=== PATIENT | female | born 1965 | race Caucasian/White ===

== ENCOUNTER 2017-05-04 12:33 | Inpatient (IN) | payer BC ==
[~2017-05-04] VITALS: Ht 162.6 cm; Wt 68.0 kg
--- OUTSIDE RECORDS SUMMARY | 2017-05-04 12:35 | XMS REPORT | Clinical Summary ---
Author Author [facility] Organization [facility] Address Unknown Phone Unavailable Care Team Providers Care Drawer In Stitch [employer] Machine Name Role Phone Deshaun Clark MD PCP Allergies No Known Allergies Current Medications Prescription Sig. Disp. Refills Start End Date Status Date atorvastatin (LIPITOR) 80 TK 1 T PO QHS 3 12/12/19 Active MG tablet 17 DEXCOM G5 [employer]ICE [employer]IR [employer]BLER misc See Admin Instructions. 0 10/15/19 Active 17 ezetimibe (ZETIA) 10 mg TK 1 T PO D 1 11/09/19 Active tablet 17 TOUJEO SOLOSTAR 300 INJECT 55 UNITS UNDER THE 3 12/08/19 Active unit/mL (1.5 mL) insulin SKIN ONCE D 17 pen metoprolol succinate XL TK 1 T PO BID 3 12/12/19 Active (TOPROL-XL) 50 mg 24 hr 17 tablet lisinopril TK 1 T PO QD 3 12/03/19 Active (PRINIVIL,ZESTRIL) 10 mg 17 tablet insulin ASPART (NovoLOG) Inject under the skin 3 Active 100 unit/mL injection (three) times a day before meals. Active Problems Problem Noted Date Dupuytren's contracture of right hand 12/23/2016 Dupuytren's contracture of left hand 12/23/2016 Encounters Date Type Specialty Care Team Description 12/23/2016 Office Visit Orthopedic Surgery Isaac Pryor MD Bilateral hand pain (Primary Dx);Dupuytren's contracture of right hand;Dupuytren's contracture of left hand after 05/03/2016 Social History Tobacco Use Types Packs/Day Years Used Date Never Assessed Sex Assigned at Date Recorded Not on file Last Filed Vital Signs Not on file Plan of Treatment Health Maintenance Due Date Last Done Comments PAP SMEAR 1985 COLONOSCOPY 2014 MAMMOGRAM 2014 INFLUENZA VACCINE 10/28/2016 Results * XR Hands 3 Vw Bilateral (12/23/2016 11:07 AM) Specimen Performing Laboratory [facility] [id number] [facility] [place] [address] Narrative X-rays of theright hand are done.PA, lateral, oblique xrays demonstrate no evidence of a fracture, dislocation. There is no DIP joint arthritis noted. There is mild first carpometacarpal joint arthritis. X-rays of theleft hand are done.PA, lateral, oblique xrays demonstrate no evidence of a fracture, dislocation. There is no DIP joint arthritis noted. There is mild first carpometacarpal joint arthritis. after 05/03/2016 Insurance Payer Benefit Subscriber ID Type Phone Address Plan / Group BCBS BCBS [id number] PPO CHOICE PPO/[place] [address]
--- OUTSIDE RECORDS SUMMARY | 2017-05-04 12:36 | XMS REPORT ---
Author Author [facility] Address Unknown Phone Unavailable Care Team Providers Care Production Team Member Name Role Phone MARIE GROSSENRIQUE Unavailable Unavailable DYLAN SOSA Unavailable Unavailable Problems This patient has no known problems. Allergies, Adverse Reactions, Alerts This patient has no known allergies or adverse reactions. Medications This patient has no known medications. Results Test Description Test Time Test Comments Text Results Atomic Results Result Comments RAD, SHOULDER, COMPLETE (MIN 2 VIEWS), LEFT 2016-12-18 15:46:00 Reason for Exam:->[id number] FINAL REPORT Right shoulder, three views ; left shoulder, three views HISTORY: Shoulder pain COMPARISON: None. DISCUSSION : Right shoulder: No acute displaced fracture or dislocation. Visualized soft tissues grossly unremarkable. Left shoulder: No acute displaced fracture or dislocation. Visualized soft tissues grossly unremarkable. IMPRESSION: Unremarkable bilateral shoulder radiographs. No acute osseous abnormality Signed : John Meade Verified Date/Time: 12/18/2016 15:46:34 Reading Location: [address] Radiology Reading Room , SHOULDER, COMPLETE (MIN 2 VIEWS), RIGHT 2016-12-18 15:46:00 Reason for Exam:->[id number] FINAL REPORT Right shoulder, three views ; left shoulder, three views HISTORY: Shoulder pain COMPARISON: None. DISCUSSION : Right shoulder: No acute displaced fracture or dislocation. Visualized soft tissues grossly unremarkable. Left shoulder: No acute displaced fracture or dislocation. Visualized soft tissues grossly unremarkable. IMPRESSION: Unremarkable bilateral shoulder radiographs. No acute osseous abnormality Signed : John Meade Verified Date/Time: 12/18/2016 15:46:34 Reading Location: [address] Radiology Reading Room -GLUCOSE METER 2016-09-18 14:14:00 POC-GLUCOSE METER (BEAKER) (test kbhu=5523) 94 mg/dL 70-[address] [facility] [address] [facility] [address] BLOOD [id number] 13:59:00* Test Item Value Reference Range Comments CULTURE (BEAKER) (test lsgx=6207) No growth in 5 days BLOOD [id number] 13:59:00* Test Item Value Reference Range Comments CULTURE (BEAKER) (test warr=9112) No growth in 5 days BLOOD [id number] 08:18:00* Test Item Value Reference Range Comments CULTURE (BEAKER) (test ffup=1387) ESCHERICHIA COLI From Anaerobic Bottle Only Escherichia coli Amikacin (test code=1) Ampicillin + Sulbactam (test code=6) Aztreonam (test code=32) Cefepime (test code=51) Cefoxitin (test code=68) Ceftazidime (test code=27) Ceftriaxone (test code=52) Ertapenem (test code=38) Gentamicin (test code=18) Levofloxacin (test code=22) Meropenem (test code=34) Piperacillin + Tazobactam (test code=29) Tetracycline (test code=2) Tobramycin (test code=25) Trimethoprim + Sulfamethoxazole (test code=47) GRAM STAIN RESULT (BEAKER) (test heaj=8986) From anaerobic bottle only: gram negative rods BLOOD [id number] 13:28:00* Test Item Value Reference Range Comments CULTURE (BEAKER) (test spye=4304) No growth in 5 days DOUBLE-STRANDED DNA (DSDNA) [id number] 11:41:00* Test Item Value Reference Range Comments ANTI-DNA DS (BEAKER) (test wzns=5649) Negative URINE [id number] 10:25:00* Test Item Value Reference Range Comments CULTURE (BEAKER) (test gbxq=7299) No growth POCT-GLUCOSE [id number] 08:44:00* Test Item Value Reference Range Comments POC-GLUCOSE METER (BEAKER) (test knfl=9264) 134 mg/dL 70-[address] [facility] [address] [facility] [address] CBC W/PLT COUNT & AUTO [id number] 07:07:00* Test Item Value Reference Range Comments WHITE BLOOD CELL COUNT (BEAKER) (test zwax=888) 7.8 K/ L 4.0-10.0 RED BLOOD CELL COUNT (BEAKER) (test hvwa=654) 3.73 M/ L 4.00-5.00 HEMOGLOBIN (BEAKER) (test xekb=200) 10.7 GM/DL 12.0-15.0 HEMATOCRIT (BEAKER) (test bzky=316) 33.0 % 36.0-45.0 MEAN CORPUSCULAR VOLUME (BEAKER) (test qkoj=266) 88.6 fL 82.0-99.0 MEAN CORPUSCULAR HEMOGLOBIN (BEAKER) (test yfdb=393) 28.7 pg 27.0-33.0 MEAN CORPUSCULAR HEMOGLOBIN CONC (BEAKER) (test gtda=771) 32.4 GM/DL 32.0- 36.0 RED CELL DISTRIBUTION WIDTH (BEAKER) (test pyzu=754) 17.9 % 10.3-14.2 PLATELET COUNT (BEAKER) (test ocwb=958) 279 K/CU MM 150-430 MEAN PLATELET VOLUME (BEAKER) (test nbrr=305) 7.2 fL 6.5-10.5 NUCLEATED RED BLOOD CELLS (BEAKER) (test lysn=378) 0 /100 WBC 0-0 NEUTROPHILS RELATIVE PERCENT (BEAKER) (test upej=189) 73 % LYMPHOCYTES RELATIVE PERCENT (BEAKER) (test mgyc=608) 13 % MONOCYTES RELATIVE PERCENT (BEAKER) (test rqro=532) 13 % EOSINOPHILS RELATIVE PERCENT (BEAKER) (test givw=791) 1 % BASOPHILS RELATIVE PERCENT (BEAKER) (test mkwa=450) 0 % NEUTROPHILS ABSOLUTE COUNT (BEAKER) (test piqr=293) 5.73 K/ L 1.80-8.00 LYMPHOCYTES ABSOLUTE COUNT (BEAKER) (test gcrs=126) 0.99 K/ L 1.48-4.50 MONOCYTES ABSOLUTE COUNT (BEAKER) (test evnr=813) 1.01 K/ L 0.00-1.30 EOSINOPHILS ABSOLUTE COUNT (BEAKER) (test ymys=282) 0.11 K/ L 0.00-0.50 BASOPHILS ABSOLUTE COUNT (BEAKER) (test yvsb=705) 0.01 K/ L 0.00-0.20 0.001.100.000.000.000.000.000.000.000.000.000.000.000.00BASI METABOLIC [id number] 05:18:00* Test Item Value Reference Range Comments SODIUM (BEAKER) (test ohnf=157) 136 meq/L 136-145 POTASSIUM (BEAKER) (test tmzt=867) 4.1 meq/L 3.5-5.1 CHLORIDE (BEAKER) (test evdd=527) 106 meq/L 98-107 CO2 (BEAKER) (test xvnk=897) 19 meq/L 22-29 BLOOD UREA NITROGEN (BEAKER) (test ztac=707) 21 mg/dL 7-21 CREATININE (BEAKER) (test xtpz=080) 0.75 mg/dL 0.57-1.25 GLUCOSE RANDOM (BEAKER) (test rjdt=302) 151 mg/dL 70-105 CALCIUM (BEAKER) (test byru=762) 8.9 mg/dL 8.4-10.2 EGFR (BEAKER) (test sdox=0346) 81 mL/min/1.73 sq m ESTIMATED GFR IS NOT ACCURATE CREATININE CLEARANCE IN PREDICTING GLOMERULAR FILTRATION RATE. ESTIMATED GFR IS NOT APPLICABLE FOR DIALYSIS PATIENTS. POCT-GLUCOSE [id number] 04:36:00* Test Item Value Reference Range Comments POC-GLUCOSE METER (BEAKER) (test sryx=7970) 158 mg/dL 70-110 TESTED AT [address] [address] RAPID STREP A [id number] 21:56:00* Test Item Value Reference Range Comments STREP A ANTIGEN (BEAKER) (test lldp=173) Negative Negative POCT-GLUCOSE [id number] 21:46:00* Test Item Value Reference Range Comments POC-GLUCOSE METER (BEAKER) (test cvni=7716) 192 mg/dL 70-110 TESTED AT [address] [address] POCT-GLUCOSE [id number] 18:18:00* Test Item Value Reference Range Comments POC-GLUCOSE METER (BEAKER) (test kufq=7682) 169 mg/dL 70-110 TESTED AT [address] [address] ANTI-NUCLEAR ANTIBODY (AMADOU)2016-08-04 14:29:00* Test Item Value Reference Range Comments ANTI-NUCLEAR ANTIBODY (AMADOU) (BEAKER) (test oqla=645) Negative Negative POCT-GLUCOSE [id number] 12:18:00* Test Item Value Reference Range Comments POC-GLUCOSE METER (BEAKER) (test zyxh=6344) 148 mg/dL 70-[address] [facility] [address] [facility] [address] CBC W/PLT COUNT & AUTO [id number] 11:27:00* Test Item Value Reference Range Comments WHITE BLOOD CELL COUNT (BEAKER) (test erow=872) 7.0 K/ L 4.0-10.0 RED BLOOD CELL COUNT (BEAKER) (test vhmd=420) 3.33 M/ L 4.00-5.00 HEMOGLOBIN (BEAKER) (test rnmb=425) 10.0 GM/DL 12.0-15.0 HEMATOCRIT (BEAKER) (test nejc=594) 29.5 % 36.0-45.0 MEAN CORPUSCULAR VOLUME (BEAKER) (test xsow=049) 88.4 fL 82.0-99.0 MEAN CORPUSCULAR HEMOGLOBIN (BEAKER) (test hrhw=348) 30.1 pg 27.0-33.0 MEAN CORPUSCULAR HEMOGLOBIN CONC (BEAKER) (test ubry=132) 34.0 GM/DL 32.0- 36.0 RED CELL DISTRIBUTION WIDTH (BEAKER) (test mrhg=960) 17.6 % 10.3-14.2 PLATELET COUNT (BEAKER) (test rgtp=816) 201 K/CU MM 150-430 MEAN PLATELET VOLUME (BEAKER) (test enbn=892) 7.4 fL 6.5-10.5 NUCLEATED RED BLOOD CELLS (BEAKER) (test wudu=138) 4 /100 WBC 0-0 0.001.100.000.000.000.000.000.000.000.500.000.000.000.00(MANUAL DIFFERENTIAL) 2016-08-04 11:27:00* Test Item Value Reference Range Comments NEUTROPHILS - REL (DIFF) (BEAKER) (test wqcc=9889) 70 % LYMPHOCYTES - REL (DIFF) (BEAKER) (test swwo=9878) 5 % MONOCYTES - REL (DIFF) (BEAKER) (test gdnf=1874) 8 % EOSINOPHILS - REL (DIFF) (BEAKER) (test sude=8602) 3 % BANDS - REL (DIFF) (BEAKER) (test dyzb=6796) 14 % 0-10 NEUTROPHILS - ABS (DIFF) (BEAKER) (test ctvq=9381) 4.90 K/ L 1.80-8.00 LYMPHOCYTES - ABS (DIFF) (BEAKER) (test rtwm=0652) 0.35 K/ L 1.48-4.50 MONOCYTES - ABS (DIFF) (BEAKER) (test uehy=8954) 0.56 K/ L 0.00-1.30 EOSINOPHILS - ABS (DIFF) (BEAKER) (test sypw=9789) 0.21 K/ L 0.00-0.50 BANDS-ABS (DIFF) (BEAKER) (test mnix=1270) 1.0 K/ L 0.0-0.8 TOTAL COUNTED (BEAKER) (test ekga=0955) 100 BANDS + SEGMENTED NEUTROPHILS (BEAKER) (test vrrg=1991) 5.88 WBC MORPHOLOGY (BEAKER) (test amox=526) Normal PLT MORPHOLOGY (BEAKER) (test ccfe=997) Normal RBC MORPHOLOGY (BEAKER) (test bfrw=535) Normal POCT-GLUCOSE [id number] 08:19:00* Test Item Value Reference Range Comments POC-GLUCOSE METER (BEAKER) (test mdjz=2485) 61 mg/dL 70-110 TESTED AT [address] [address] POCT-GLUCOSE [id number] 07:19:00* Test Item Value Reference Range Comments POC-GLUCOSE METER (BEAKER) (test qzir=8828) 54 mg/dL 70-110 Notified JORDAN ROBERTO/ TESTED AT [address] [address] [id number] 06:11:00* Test Item Value Reference Range Comments PHOSPHORUS (BEAKER) (test hmsa=096) 3.3 mg/dL 2.3-4.7 [id number] 06:11:00* Test Item Value Reference Range Comments MAGNESIUM (BEAKER) (test byxm=281) 2.3 mg/dL 1.6-2.6 BASIC METABOLIC [id number] 06:11:00* Test Item Value Reference Range Comments SODIUM (BEAKER) (test xwlp=375) 135 meq/L 136-145 POTASSIUM (BEAKER) (test jdmf=082) 4.3 meq/L 3.5-5.1 CHLORIDE (BEAKER) (test mget=658) 108 meq/L 98-107 CO2 (BEAKER) (test eoox=762) 20 meq/L 22-29 BLOOD UREA NITROGEN (BEAKER) (test qhog=993) 31 mg/dL 7-21 CREATININE (BEAKER) (test gixb=323) 0.87 mg/dL 0.57-1.25 GLUCOSE RANDOM (BEAKER) (test vtwg=900) 67 mg/dL 70-105 CALCIUM (BEAKER) (test okzr=736) 8.7 mg/dL 8.4-10.2 EGFR (BEAKER) (test vnco=5290) 69 mL/min/1.73 sq m ESTIMATED GFR IS NOT ACCURATE CREATININE CLEARANCE IN PREDICTING GLOMERULAR FILTRATION RATE. ESTIMATED GFR IS NOT APPLICABLE FOR DIALYSIS PATIENTS. POCT-GLUCOSE [id number] 20:44:00* Test Item Value Reference Range Comments POC-GLUCOSE METER (BEAKER) (test oljt=5598) 135 mg/dL 70-110 TESTED AT [address] [address] URINALYSIS W/ [id number] 18:33:00* Test Item Value Reference Range Comments COLOR (BEAKER) (test tgdr=747) Yellow CLARITY (BEAKER) (test vkjh=421) Hazy SPECIFIC GRAVITY UA (BEAKER) (test chbl=467) 1.015 1.001-1.035 PH UA (BEAKER) (test zecn=915) 5.5 5.0-8.0 PROTEIN UA (BEAKER) (test yuon=001) 30 mg/dL Negative GLUCOSE UA (BEAKER) (test sjkc=542) Negative Negative KETONES UA (BEAKER) (test ckcn=439) Negative Negative BILIRUBIN UA (BEAKER) (test rrbi=565) Negative Negative BLOOD UA (BEAKER) (test uubw=048) Trace Negative NITRITE UA (BEAKER) (test ggig=660) Negative Negative LEUKOCYTE ESTERASE UA (BEAKER) (test erxn=059) Small Negative UROBILINOGEN UA (BEAKER) (test jibh=400) 0.2 mg/dL 0.2-1.0 RBC UA (BEAKER) (test xoam=454) 1 /HPF WBC UA (BEAKER) (test jpzn=657) 5 /HPF SQUAMOUS EPITHELIAL (BEAKER) (test ufih=791) 5 /HPF SOURCE(BEAKER) (test pdst=0961) Urine, Clean Catch POCT-GLUCOSE [id number] 18:03:00* Test Item Value Reference Range Comments POC-GLUCOSE METER (BEAKER) (test dpkq=4591) 79 mg/dL 70-[address] [facility] [address] [facility] [address] POCT-GLUCOSE [id number] 14:52:00* Test Item Value Reference Range Comments POC-GLUCOSE METER (BEAKER) (test noxt=2834) 124 mg/dL 70-110 TESTED AT [place] [id number] [facility] [address] POCT-GLUCOSE [id number] 08:25:00* Test Item Value Reference Range Comments POC-GLUCOSE METER (BEAKER) (test pnrp=6046) 146 mg/dL 70-[address] [facility] [address] [facility] [address] BLOOD [id number] 08:06:00* Test Item Value Reference Range Comments CULTURE (BEAKER) (test yftr=2688) ESCHERICHIA COLI From Aerobic And Anaerobic Bottles Escherichia coli Amikacin (test code=1) Ampicillin + Sulbactam (test code=6) Aztreonam (test code=32) Cefepime (test code=51) Cefoxitin (test code=68) Ceftazidime (test code=27) Ceftriaxone (test code=52) Ertapenem (test code=38) Gentamicin (test code=18) Levofloxacin (test code=22) Meropenem (test code=34) Tetracycline (test code=2) Tobramycin (test code=25) Trimethoprim + Sulfamethoxazole (test code=47) GRAM STAIN RESULT (AKER) (test cfgc=7745) From aerobic and anaerobic bottles : gram negative rods CBC W/PLT COUNT & AUTO [id number] 06:44:00* Test Item Value Reference Range Comments WHITE BLOOD CELL COUNT (BEAKER) (test ccpq=819) 9.5 K/ L 4.0-10.0 RED BLOOD CELL COUNT (BEAKER) (test zqah=844) 3.69 M/ L 4.00-5.00 HEMOGLOBIN (BEAKER) (test gfls=099) 11.2 GM/DL 12.0-15.0 HEMATOCRIT (BEAKER) (test slsn=862) 34.0 % 36.0-45.0 MEAN CORPUSCULAR VOLUME (BEAKER) (test seds=491) 92.2 fL 82.0-99.0 Discordant from previous results. Clinical correlation suggested. MEAN CORPUSCULAR HEMOGLOBIN (BEAKER) (test ffmp=937) 30.3 pg 27.0-33.0 MEAN CORPUSCULAR HEMOGLOBIN CONC (BEAKER) (test hwwk=128) 32.9 GM/DL 32.0- 36.0 RED CELL DISTRIBUTION WIDTH (BEAKER) (test rksn=703) 16.7 % 10.3-14.2 PLATELET COUNT (BEAKER) (test lnwj=025) 180 K/CU MM 150-430 MEAN PLATELET VOLUME (BEAKER) (test aksj=284) 7.9 fL 6.5-10.5 NUCLEATED RED BLOOD CELLS (BEAKER) (test hjix=308) 0 /100 WBC 0-0 NEUTROPHILS RELATIVE PERCENT (BEAKER) (test ajqi=839) 80 % LYMPHOCYTES RELATIVE PERCENT (BEAKER) (test llqa=502) 8 % MONOCYTES RELATIVE PERCENT (BEAKER) (test nkdy=931) 12 % EOSINOPHILS RELATIVE PERCENT (BEAKER) (test bbtj=377) 1 % BASOPHILS RELATIVE PERCENT (BEAKER) (test neuc=055) 0 % NEUTROPHILS ABSOLUTE COUNT (BEAKER) (test utpk=118) 7.56 K/ L 1.80-8.00 LYMPHOCYTES ABSOLUTE COUNT (BEAKER) (test nksu=497) 0.77 K/ L 1.48-4.50 MONOCYTES ABSOLUTE COUNT (BEAKER) (test rdhk=978) 1.09 K/ L 0.00-1.30 EOSINOPHILS ABSOLUTE COUNT (BEAKER) (test pkol=293) 0.07 K/ L 0.00-0.50 BASOPHILS ABSOLUTE COUNT (BEAKER) (test lytc=731) 0.01 K/ L 0.00-0.20 [id number] 06:17:00* Test Item Value Reference Range Comments PHOSPHORUS (BEAKER) (test kufe=679) 3.5 mg/dL 2.3-4.7 [id number] 06:17:00* Test Item Value Reference Range Comments MAGNESIUM (BEAKER) (test zemq=364) 2.4 mg/dL 1.6-2.6 BASIC METABOLIC [id number] 06:17:00* Test Item Value Reference Range Comments SODIUM (BEAKER) (test setl=784) 135 meq/L 136-145 POTASSIUM (BEAKER) (test vrbd=353) 3.3 meq/L 3.5-5.1 CHLORIDE (BEAKER) (test kxjd=595) 109 meq/L 98-107 CO2 (BEAKER) (test luye=812) 16 meq/L 22-29 BLOOD UREA NITROGEN (BEAKER) (test swwv=533) 42 mg/dL 7-21 CREATININE (BEAKER) (test axdv=423) 1.23 mg/dL 0.57-1.25 GLUCOSE RANDOM (BEAKER) (test imbz=737) 96 mg/dL 70-105 CALCIUM (BEAKER) (test lxvf=563) 8.5 mg/dL 8.4-10.2 EGFR (BEAKER) (test ifst=0417) 46 mL/min/1.73 sq m ESTIMATED GFR IS NOT ACCURATE CREATININE CLEARANCE IN PREDICTING GLOMERULAR FILTRATION RATE. ESTIMATED GFR IS NOT APPLICABLE FOR DIALYSIS PATIENTS. POCT-GLUCOSE [id number] 05:20:00* Test Item Value Reference Range Comments POC-GLUCOSE METER (BEAKER) (test tubk=6652) 103 mg/dL 70-110 TESTED AT [place] [id number] POCT-GLUCOSE [id number] 04:42:00* Test Item Value Reference Range Comments POC-GLUCOSE METER (BEAKER) (test jwnl=9440) 47 mg/dL 70-110 Will Repeat Test /TESTED AT [address] [address] POCT-GLUCOSE [id number] 04:42:00* Test Item Value Reference Range Comments POC-GLUCOSE METER (BEAKER) (test yaut=1216) 42 mg/dL 70-110 Will Repeat Test /TESTED AT [address] [address] CSF CULTURE + GRAM [id number] 23:52:00* Test Item Value Reference Range Comments CULTURE (BEAKER) (test husp=7764) No growth GRAM STAIN RESULT (BEAKER) (test fizn=7206) No WBCs GRAM STAIN RESULT (BEAKER) (test drju=75356) No organisms seen POCT-GLUCOSE [id number] 20:47:00* Test Item Value Reference Range Comments POC-GLUCOSE METER (BEAKER) (test imop=5743) 167 mg/dL 70-[address] [facility] [address] [facility] [address] POCT-GLUCOSE [id number] 18:00:00* Test Item Value Reference Range Comments POC-GLUCOSE METER (BEAKER) (test uztr=6700) 214 mg/dL 70-110 TESTED AT [place] [id number] [facility] [address] CBC W/PLT COUNT & AUTO [id number] 11:29:00* Test Item Value Reference Range Comments WHITE BLOOD CELL COUNT (BEAKER) (test yqky=281) 10.2 K/ L 4.0-10.0 RED BLOOD CELL COUNT (BEAKER) (test txtx=613) 3.88 M/ L 4.00-5.00 HEMOGLOBIN (BEAKER) (test umud=103) 11.9 GM/DL 12.0-15.0 HEMATOCRIT (BEAKER) (test mtle=521) 34.1 % 36.0-45.0 MEAN CORPUSCULAR VOLUME (BEAKER) (test vnxu=579) 88.1 fL 82.0-99.0 MEAN CORPUSCULAR HEMOGLOBIN (BEAKER) (test pwvg=787) 30.6 pg 27.0-33.0 MEAN CORPUSCULAR HEMOGLOBIN CONC (BEAKER) (test bkoq=345) 34.8 GM/DL 32.0- 36.0 RED CELL DISTRIBUTION WIDTH (BEAKER) (test xnwe=055) 17.2 % 10.3-14.2 PLATELET COUNT (BEAKER) (test ebqo=164) 173 K/CU MM 150-430 MEAN PLATELET VOLUME (BEAKER) (test uzqo=033) 7.8 fL 6.5-10.5 NUCLEATED RED BLOOD CELLS (BEAKER) (test akam=347) 0 /100 WBC 0-0 NEUTROPHILS RELATIVE PERCENT (BEAKER) (test oldw=863) 81 % LYMPHOCYTES RELATIVE PERCENT (BEAKER) (test rphy=206) 7 % MONOCYTES RELATIVE PERCENT (BEAKER) (test khvl=816) 11 % EOSINOPHILS RELATIVE PERCENT (BEAKER) (test rhij=507) 0 % BASOPHILS RELATIVE PERCENT (BEAKER) (test poig=372) 1 % NEUTROPHILS ABSOLUTE COUNT (BEAKER) (test bgoy=654) 8.24 K/ L 1.80-8.00 LYMPHOCYTES ABSOLUTE COUNT (BEAKER) (test cnfg=146) 0.70 K/ L 1.48-4.50 MONOCYTES ABSOLUTE COUNT (BEAKER) (test axxe=840) 1.14 K/ L 0.00-1.30 EOSINOPHILS ABSOLUTE COUNT (BEAKER) (test rzcc=986) 0.02 K/ L 0.00-0.50 BASOPHILS ABSOLUTE COUNT (BEAKER) (test myto=891) 0.06 K/ L 0.00-0.20 0.000.570.000.000.000.000.000.000.00(MANUAL DIFFERENTIAL)2016-08-02 11:29:00* Test Item Value Reference Range Comments NEUTROPHILS - REL (DIFF) (BEAKER) (test xeqj=5334) 58 % LYMPHOCYTES - REL (DIFF) (BEAKER) (test nyxp=9135) 6 % MONOCYTES - REL (DIFF) (BEAKER) (test demh=3796) 10 % BANDS - REL (DIFF) (BEAKER) (test arcv=6736) 26 % 0-10 NEUTROPHILS - ABS (DIFF) (BEAKER) (test owyk=7056) 5.92 K/ L 1.80-8.00 LYMPHOCYTES - ABS (DIFF) (BEAKER) (test cxrd=4130) 0.61 K/ L 1.48-4.50 MONOCYTES - ABS (DIFF) (BEAKER) (test xnhh=9336) 1.02 K/ L 0.00-1.30 BANDS-ABS (DIFF) (BEAKER) (test wyao=3164) 2.7 K/ L 0.0-0.8 TOTAL COUNTED (BEAKER) (test xogp=3003) 100 BANDS + SEGMENTED NEUTROPHILS (BEAKER) (test afna=9982) 8.57 WBC MORPHOLOGY (BEAKER) (test vqpo=825) Normal PLT MORPHOLOGY (BEAKER) (test tmic=448) Normal ACANTHOCYTES (BEAKER) (test adaw=107) 1+ few ANISOCYTOSIS (BEAKER) (test krlm=416) 2+ moderate ADAMARIS CELLS (BEAKER) (test ayab=868) 1+ few MACROCYTES (BEAKER) (test fckk=150) 2+ moderate MICROCYTES (BEAKER) (test mlpn=194) 1+ few OVALOCYTES (BEAKER) (test dqwu=757) 1+ few POIKILOCYTES (BEAKER) (test bild=770) 1+ few POLYCHROMATOPHILLIC RBCS(BEAKER) (test iats=170) 1+ few POCT-GLUCOSE [id number] 11:19:00* Test Item Value Reference Range Comments POC-GLUCOSE METER (BEAKER) (test idvn=5600) 138 mg/dL 70-110 TESTED AT [place] [address] URINE [id number] 10:46:00* Test Item Value Reference Range Comments CULTURE (BEAKER) (test zhfp=3645) ESCHERICHIA COLI >100,000 col/mL Escherichia coli Amikacin (test code=1) Ampicillin + Sulbactam (test code=6) Aztreonam (test code=32) Cefepime (test code=51) Cefoxitin (test code=68) Ceftazidime (test code=27) Ceftriaxone (test code=52) Ertapenem (test code=38) Gentamicin (test code=18) Levofloxacin (test code=22) Meropenem (test code=34) Nitrofurantoin (test code=23) Piperacillin + Tazobactam (test code=29) Tetracycline (test code=2) Tobramycin (test code=25) Trimethoprim + Sulfamethoxazole (test code=47) <10,000 col/mL yeast<10,000 col/mL gram negative vj of a second [id number]- GLUCOSE [id number] 07:44:00* Test Item Value Reference Range Comments POC-GLUCOSE METER (BEAKER) (test ogcg=2008) 166 mg/dL 70-110 TESTED AT [address] [address] [id number] 05:46:00* Test Item Value Reference Range Comments PHOSPHORUS (BEAKER) (test kfgy=644) 3.0 mg/dL 2.3-4.7 [id number] 05:46:00* Test Item Value Reference Range Comments MAGNESIUM (BEAKER) (test tvuv=978) 2.4 mg/dL 1.6-2.6 BASIC METABOLIC [id number] 05:46:00* Test Item Value Reference Range Comments SODIUM (BEAKER) (test yvzg=182) 133 meq/L 136-145 POTASSIUM (BEAKER) (test geti=820) 3.9 meq/L 3.5-5.1 CHLORIDE (BEAKER) (test ohpl=104) 107 meq/L 98-107 CO2 (BEAKER) (test ijsg=672) 16 meq/L 22-29 BLOOD UREA NITROGEN (BEAKER) (test utka=151) 41 mg/dL 7-21 CREATININE (BEAKER) (test okim=853) 1.49 mg/dL 0.57-1.25 GLUCOSE RANDOM (BEAKER) (test kazn=564) 133 mg/dL 70-105 CALCIUM (BEAKER) (test qfpe=021) 8.3 mg/dL 8.4-10.2 EGFR (BEAKER) (test xrrw=5149) 37 mL/min/1.73 sq m ESTIMATED GFR IS NOT ACCURATE CREATININE CLEARANCE IN PREDICTING GLOMERULAR FILTRATION RATE. ESTIMATED GFR IS NOT APPLICABLE FOR DIALYSIS PATIENTS. POCT-GLUCOSE [id number] 22:21:00* Test Item Value Reference Range Comments POC-GLUCOSE METER (BEAKER) (test xbpu=6469) 318 mg/dL 70-[address] [facility] [address] [facility] [address] POCT-GLUCOSE [id number] 22:17:00* Test Item Value Reference Range Comments POC-GLUCOSE METER (BEAKER) (test ogyc=2793) 214 mg/dL 70-[address] [facility] [address] [facility] [address] POCT-GLUCOSE [id number] 22:17:00* Test Item Value Reference Range Comments POC-GLUCOSE METER (BEAKER) (test nqgm=8301) 235 mg/dL 70-110 TESTED AT [place] [id number] [facility] [address] TROPONIN [id number] 18:32:00* Test Item Value Reference Range Comments TROPONIN I (BEAKER) (test ttvh=205) 1.45 ng/mL 0.00-0.03 Effective 02/14/2014: Reference Range ChangeNew: 0.00-0.03 Previous 0.00- 0.15Troponin I (TnI) levels must be interpreted in the context of the presenting symptoms and the clinical findings. Elevated TnI levels indicate myocardial damage, but are not specific for ischemic heart disease. Elevated TnI levels are seen in patients with other cardiac conditions (including myocarditis and congestive heart failure), and slight TnI elevations occur in patients with other conditions, including sepsis, renal failure, acidosis, acute neurological disease, and persistent tachyarrhythmia.LACTIC ACID, VENOUS, WHOLE [id number] 18:18:00* Test Item Value Reference Range Comments LACTATE BLOOD VENOUS (2) (BEAKER) (test ckdc=9419) 0.9 mmol/L 0.5-2.2 Specimen slightly hemolyzed Effective 08/01/2015: Units/Reference Range ChangeNew: 0.5-2.2 mmol/L Previous: 5 -20 mg/[id number] 18:16:00* Test Item Value Reference Range Comments POTASSIUM (BEAKER) (test xuqc=876) 3.7 meq/L 3.5-5.1 [id number] 18:16:00* Test Item Value Reference Range Comments PHOSPHORUS (BEAKER) (test life=754) 3.6 mg/dL 2.3-4.7 [id number] 18:16:00* Test Item Value Reference Range Comments GLUCOSE RANDOM (BEAKER) (test lygg=873) 200 mg/dL 70-105 Effective 02/14/2014: Reference Range Change-Adult onlyNew: 70-105 Previous : 79-843LQLE-SWGFQYR [id number] 15:47:00* Test Item Value Reference Range Comments POC-GLUCOSE METER (BEAKER) (test nssq=1368) 258 mg/dL 70-110 TESTED AT [place] [id number] [facility] [address] INFLUENZA A H1N1 [id number] 14:27:00* Test Item Value Reference Range Comments INFLUENZA A RNA (BEAKER) (test mvca=1170) Not Detected Not Detected, Inconclusive NOVEL H1N1 RNA (BEAKER) (test bbmr=9929) Not Detected Not Detected, Inconclusive These assays were performed by real-time RT-PCR (sales service promoter-PCR) utilizing fluorogenic hydrolysis probe technology for the detection of human Influenza A viruses and the differential detection of novel H1N1 Influenza virus in respiratory specimens. The test is composed of (1) an RNA extraction from patient specimen, and (2) sales service promoter-PCR amplification and detection with human Influenza A and novel U9K5-ysbyraab primers and probes. A well-conserved region of the Influenza A matrix gene is targeted in one set of reactions to identify both seasonal Influenza A and novel H1N1 Influenza virus in the specimen. In addition, a specific region of the hemagglutinin gene is targeted to differentiate the novel H1N1 virus from the seasonal human influenza. An internal control is used to confirm PCR amplification. Genetic variation and other factors can affect the accuracy of nucleic acid testing; therefore, the results should be interpreted in light of clinical data. This test was developed and its performance characteristics determined by the [facility] Pathology Department, Section of Molecular Pathology. It has not been cleared or approved by the U.S. Food and Drug Administration (FDA). Since FDA approval is not required for clinical use of the test, validation was done as required by The Clinical Laboratory Amendments of 1988.POCT-GLUCOSE [id number] 14:26 :00* Test Item Value Reference Range Comments POC-GLUCOSE METER (BEAKER) (test jslj=3335) 245 mg/dL 70-110 TESTED AT [place] [id number] POCT-GLUCOSE [id number] 13:09:00* Test Item Value Reference Range Comments POC-GLUCOSE METER (BEAKER) (test rdmj=9426) 204 mg/dL 70-110 TESTED AT [place] [id number] CSF CELL COUNT [id number]/[id number] 12:27:00* Test Item Value Reference Range Comments APPEARANCE CSF (BEAKER) (test mrmj=663) Clear Clear COLOR CSF (BEAKER) (test fxdk=480) Colorless Colorless RBC CSF (BEAKER) (test faua=127) 235 /cu mm 0-5 WBC CSF (BEAKER) (test hpyx=0350) 0 /cu mm <=5 RBCS FRESH (BEAKER) (test vftm=9531) 75% Fresh, 25% Crenated NUMBER OF CELLS DIFF'D (BEAKER) (test ptxm=7938) 0 TUBE NUMBER CSF (BEAKER) (test sgrz=9293) 4 POCT-GLUCOSE [id number] 12:23:00* Test Item Value Reference Range Comments POC-GLUCOSE METER (BEAKER) (test ppbj=3603) 207 mg/dL 70-110 [address]ED AT [address] [address] POCT-GLUCOSE [id number] 12:23:00* Test Item Value Reference Range Comments POC-GLUCOSE METER (BEAKER) (test ldnv=2173) 187 mg/dL 70-110 TESTED AT [address] [address] TROPONIN [id number] 12:17:00* Test Item Value Reference Range Comments TROPONIN I (BEAKER) (test fwvh=596) 2.04 ng/mL 0.00-0.03 Effective 02/14/2014: Reference Range ChangeNew: 0.00-0.03 Previous 0.00- 0.15Troponin I (TnI) levels must be interpreted in the context of the presenting symptoms and the clinical findings. Elevated TnI levels indicate myocardial damage, but are not specific for ischemic heart disease. Elevated TnI levels are seen in patients with other cardiac conditions (including myocarditis and congestive heart failure), and slight TnI elevations occur in patients with other conditions, including sepsis, renal failure, acidosis, acute neurological disease, and persistent tachyarrhythmia.LACTIC ACID, VENOUS, WHOLE [id number] 12:01:00* Test Item Value Reference Range Comments LACTATE BLOOD VENOUS (2) (BEAKER) (test cuvi=4563) 0.9 mmol/L 0.5-2.2 Effective 08/01/2015: Units/Reference Range ChangeNew: 0.5-2.2 mmol/L Previous: 5 -20 mg/dLPOCT-GLUCOSE [id number] 10:30:00* Test Item Value Reference Range Comments POC-GLUCOSE METER (BEAKER) (test kxaw=4891) 147 mg/dL 70-110 TESTED AT [place] [id number] [facility] [address] POCT-GLUCOSE [id number] 10:30:00* Test Item Value Reference Range Comments POC-GLUCOSE METER (BEAKER) (test rjuy=5487) 174 mg/dL 70-110 TESTED AT [place] [id number] [facility] [address] [id number] 10:25:00* Test Item Value Reference Range Comments PROCALCITONIN (BEAKER) (test lfuh=7968) 7.91 ng/mL <0.05 SEPSIS RISK (ng/mL)Low: 0.05-0.50Intermediate: 0.51-2.00High: > =[id number] 09:32:00* Test Item Value Reference Range Comments PHOSPHORUS (BEAKER) (test ecfw=738) 1.4 mg/dL 2.3-4.7 BASIC METABOLIC [id number] 09:23:00* Test Item Value Reference Range Comments SODIUM (BEAKER) (test bidi=559) 130 meq/L 136-145 POTASSIUM (BEAKER) (test wjwb=790) 3.4 meq/L 3.5-5.1 CHLORIDE (BEAKER) (test dhao=431) 105 meq/L 98-107 CO2 (BEAKER) (test zjga=354) 18 meq/L 22-29 BLOOD UREA NITROGEN (BEAKER) (test uqvy=618) 37 mg/dL 7-21 CREATININE (BEAKER) (test xgrb=950) 1.41 mg/dL 0.57-1.25 GLUCOSE RANDOM (BEAKER) (test boyv=063) 200 mg/dL 70-105 CALCIUM (BEAKER) (test dldl=680) 7.5 mg/dL 8.4-10.2 EGFR (BEAKER) (test nidl=2482) 39 mL/min/1.73 sq m ESTIMATED GFR IS NOT ACCURATE CREATININE CLEARANCE IN PREDICTING GLOMERULAR FILTRATION RATE. ESTIMATED GFR IS NOT APPLICABLE FOR DIALYSIS PATIENTS. [id number] 09:22:00* Test Item Value Reference Range Comments MAGNESIUM (BEAKER) (test nqmb=068) 2.3 mg/dL 1.6-2.6 POCT-GLUCOSE [id number] 08:31:00* Test Item Value Reference Range Comments POC-GLUCOSE METER (BEAKER) (test gmqj=0690) 224 mg/dL 70-[address] [facility] [address] [facility] [address] POCT-GLUCOSE [id number] 07:16:00* Test Item Value Reference Range Comments POC-GLUCOSE METER (BEAKER) (test mxgw=6353) 238 mg/dL 70-[address] [facility] [address] [facility] [address] LACTIC ACID, VENOUS, WHOLE [id number] 06:54:00* Test Item Value Reference Range Comments LACTATE BLOOD VENOUS (2) (BEAKER) (test zqxj=2749) 1.0 mmol/L 0.5-2.2 Effective 08/01/2015: Units/Reference Range ChangeNew: 0.5-2.2 mmol/L Previous: 5 -20 mg/dLTROPONIN [id number] 06:42:00* Test Item Value Reference Range Comments TROPONIN I (BEAKER) (test wvxw=461) 2.28 ng/mL 0.00-0.03 Effective 02/14/2014: Reference Range ChangeNew: 0.00-0.03 Previous 0.00- 0.15Troponin I (TnI) levels must be interpreted in the context of the presenting symptoms and the clinical findings. Elevated TnI levels indicate myocardial damage, but are not specific for ischemic heart disease. Elevated TnI levels are seen in patients with other cardiac conditions (including myocarditis and congestive heart failure), and slight TnI elevations occur in patients with other conditions, including sepsis, renal failure, acidosis, acute neurological disease, and persistent tachyarrhythmia.POCT-GLUCOSE [id number] 06:33:00* Test Item Value Reference Range Comments POC-GLUCOSE METER (BEAKER) (test yixr=3423) 233 mg/dL 70-[address] [facility] [address] [facility] [address] [id number] 06:12:00* Test Item Value Reference Range Comments PHOSPHORUS (BEAKER) (test kimm=947) 2.3 mg/dL 2.3-4.7 Specimen moderately hemolyzed BASIC METABOLIC [id number] 06:04:00* Test Item Value Reference Range Comments SODIUM (BEAKER) (test ssmc=290) 131 meq/L 136-145 POTASSIUM (BEAKER) (test nmqb=373) 4.1 meq/L 3.5-5.1 CHLORIDE (BEAKER) (test swij=119) 105 meq/L 98-107 CO2 (BEAKER) (test umli=378) 18 meq/L 22-29 BLOOD UREA NITROGEN (BEAKER) (test ihby=916) 33 mg/dL 7-21 CREATININE (BEAKER) (test thxp=186) 1.63 mg/dL 0.57-1.25 GLUCOSE RANDOM (BEAKER) (test nauf=192) 196 mg/dL 70-105 CALCIUM (BEAKER) (test kviv=472) 7.7 mg/dL 8.4-10.2 EGFR (BEAKER) (test lhrw=1687) 33 mL/min/1.73 sq m ESTIMATED GFR IS NOT ACCURATE CREATININE CLEARANCE IN PREDICTING GLOMERULAR FILTRATION RATE. ESTIMATED GFR IS NOT APPLICABLE FOR DIALYSIS PATIENTS. [id number] 05:48:00* Test Item Value Reference Range Comments MAGNESIUM (BEAKER) (test rutn=630) 2.5 mg/dL 1.6-2.6 CBC W/PLT COUNT & AUTO [id number] 05:29:00* Test Item Value Reference Range Comments WHITE BLOOD CELL COUNT (BEAKER) (test abvk=416) 10.0 K/ L 4.0-10.0 RED BLOOD CELL COUNT (BEAKER) (test bkrg=704) 3.97 M/ L 4.00-5.00 HEMOGLOBIN (BEAKER) (test bktg=605) 12.0 GM/DL 12.0-15.0 HEMATOCRIT (BEAKER) (test vnyv=841) 34.7 % 36.0-45.0 MEAN CORPUSCULAR VOLUME (BEAKER) (test dkal=835) 87.6 fL 82.0-99.0 MEAN CORPUSCULAR HEMOGLOBIN (BEAKER) (test idzh=011) 30.2 pg 27.0-33.0 MEAN CORPUSCULAR HEMOGLOBIN CONC (BEAKER) (test lmkc=952) 34.5 GM/DL 32.0- 36.0 RED CELL DISTRIBUTION WIDTH (BEAKER) (test hplc=013) 16.7 % 10.3-14.2 PLATELET COUNT (BEAKER) (test sgnr=124) 160 K/CU MM 150-430 MEAN PLATELET VOLUME (BEAKER) (test mfmt=841) 7.7 fL 6.5-10.5 NUCLEATED RED BLOOD CELLS (BEAKER) (test ytmg=993) 0 /100 WBC 0-0 NEUTROPHILS RELATIVE PERCENT (BEAKER) (test ylyr=205) 82 % LYMPHOCYTES RELATIVE PERCENT (BEAKER) (test sjme=537) 6 % MONOCYTES RELATIVE PERCENT (BEAKER) (test bamc=890) 12 % EOSINOPHILS RELATIVE PERCENT (BEAKER) (test tsuy=422) 0 % BASOPHILS RELATIVE PERCENT (BEAKER) (test ywer=226) 0 % NEUTROPHILS ABSOLUTE COUNT (BEAKER) (test fbhl=095) 8.12 K/ L 1.80-8.00 LYMPHOCYTES ABSOLUTE COUNT (BEAKER) (test hvnv=541) 0.63 K/ L 1.48-4.50 MONOCYTES ABSOLUTE COUNT (BEAKER) (test znsw=269) 1.16 K/ L 0.00-1.30 EOSINOPHILS ABSOLUTE COUNT (BEAKER) (test foph=926) 0.01 K/ L 0.00-0.50 BASOPHILS ABSOLUTE COUNT (BEAKER) (test fjco=924) 0.03 K/ L 0.00-0.20 0.00POCT-GLUCOSE [id number] 05:23:00* Test Item Value Reference Range Comments POC-GLUCOSE METER (BEAKER) (test tccy=9679) 191 mg/dL 70-110 TESTED AT [place] [id number] [facility] [address] POCT-GLUCOSE [id number] 03:18:00* Test Item Value Reference Range Comments POC-GLUCOSE METER (BEAKER) (test idab=7510) 269 mg/dL 70-110 [address]ED AT [address] [address] POCT-GLUCOSE [id number] 02:19:00* Test Item Value Reference Range Comments POC-GLUCOSE METER (BEAKER) (test gvbu=8428) 266 mg/dL 70-110 TESTED AT [address] [address] [id number] 02:11:00* Test Item Value Reference Range Comments PHOSPHORUS (BEAKER) (test xmks=378) 1.5 mg/dL 2.3-4.7 BASIC METABOLIC [id number] 02:06:00* Test Item Value Reference Range Comments SODIUM (BEAKER) (test dznv=543) 128 meq/L 136-145 POTASSIUM (BEAKER) (test shgc=488) 3.7 meq/L 3.5-5.1 CHLORIDE (BEAKER) (test ehzy=725) 104 meq/L 98-107 CO2 (BEAKER) (test hujs=958) 12 meq/L 22-29 BLOOD UREA NITROGEN (BEAKER) (test euua=236) 36 mg/dL 7-21 CREATININE (BEAKER) (test wpft=477) 1.64 mg/dL 0.57-1.25 GLUCOSE RANDOM (BEAKER) (test negs=865) 309 mg/dL 70-105 CALCIUM (BEAKER) (test uxaw=487) 7.3 mg/dL 8.4-10.2 EGFR (BEAKER) (test ocpn=5517) 33 mL/min/1.73 sq m ESTIMATED GFR IS NOT ACCURATE CREATININE CLEARANCE IN PREDICTING GLOMERULAR FILTRATION RATE. ESTIMATED GFR IS NOT APPLICABLE FOR DIALYSIS PATIENTS. [id number] 02:02:00* Test Item Value Reference Range Comments MAGNESIUM (BEAKER) (test gdik=652) 2.1 mg/dL 1.6-2.6 LACTIC ACID, VENOUS, WHOLE [id number] 01:55:00* Test Item Value Reference Range Comments LACTATE BLOOD VENOUS (2) (BEAKER) (test tget=3209) 1.8 mmol/L 0.5-2.2 Effective 08/01/2015: Units/Reference Range ChangeNew: 0.5-2.2 mmol/L Previous: 5 -20 mg/dLPOCT-GLUCOSE [id number] 01:02:00* Test Item Value Reference Range Comments POC-GLUCOSE METER (BEAKER) (test jmmg=1838) 271 mg/dL 70-110 TESTED AT [address] [address] B-TYPE NATRIURETIC FACTOR (BNP)2016-08-01 00:06:00* Test Item Value Reference Range Comments B-TYPE NATRIURETIC PEPTIDE (BEAKER) (test fkww=402) 269 pg/mL 0-100 POCT-GLUCOSE [id number] 23:37:00* Test Item Value Reference Range Comments POC-GLUCOSE METER (BEAKER) (test jtrl=7422) 404 mg/dL 70-110 TESTED AT [address] [address] POCT-GLUCOSE [id number] 22:08:00* Test Item Value Reference Range Comments POC-GLUCOSE METER (BEAKER) (test team=5009) 452 mg/dL 70-110 TESTED AT [address] [address] BASIC METABOLIC [id number] 21:39:00* Test Item Value Reference Range Comments SODIUM (BEAKER) (test popx=738) 128 meq/L 136-145 POTASSIUM (BEAKER) (test uqqs=221) 4.1 meq/L 3.5-5.1 CHLORIDE (BEAKER) (test sfkh=021) 100 meq/L 98-107 CO2 (BEAKER) (test gdgk=388) 9 meq/L 22-29 BLOOD UREA NITROGEN (BEAKER) (test aofd=694) 32 mg/dL 7-21 CREATININE (BEAKER) (test twku=346) 1.59 mg/dL 0.57-1.25 GLUCOSE RANDOM (BEAKER) (test zvmf=380) 477 mg/dL 70-105 CALCIUM (BEAKER) (test htyz=963) 7.5 mg/dL 8.4-10.2 EGFR (BEAKER) (test wezy=5041) 34 mL/min/1.73 sq m ESTIMATED GFR IS NOT ACCURATE CREATININE CLEARANCE IN PREDICTING GLOMERULAR FILTRATION RATE. ESTIMATED GFR IS NOT APPLICABLE FOR DIALYSIS PATIENTS. TROPONIN [id number] 21:31:00* Test Item Value Reference Range Comments TROPONIN I (BEAKER) (test kpfu=067) 0.06 ng/mL 0.00-0.03 Effective 02/14/2014: Reference Range ChangeNew: 0.00-0.03 Previous 0.00- 0.15Troponin I (TnI) levels must be interpreted in the context of the presenting symptoms and the clinical findings. Elevated TnI levels indicate myocardial damage, but are not specific for ischemic heart disease. Elevated TnI levels are seen in patients with other cardiac conditions (including myocarditis and congestive heart failure), and slight TnI elevations occur in patients with other conditions, including sepsis, renal failure, acidosis, acute neurological disease, and persistent tachyarrhythmia.[id number] 21:24:00* Test Item Value Reference Range Comments PHOSPHORUS (BEAKER) (test vldm=154) 2.7 mg/dL 2.3-4.7 [id number] 21:24:00* Test Item Value Reference Range Comments MAGNESIUM (BEAKER) (test waxm=298) 1.4 mg/dL 1.6-2.6 LACTIC ACID, VENOUS, WHOLE [id number] 21:21:00* Test Item Value Reference Range Comments LACTATE BLOOD VENOUS (2) (BEAKER) (test ueff=9571) 1.8 mmol/L 0.5-2.2 Effective 08/01/2015: Units/Reference Range ChangeNew: 0.5-2.2 mmol/L Previous: 5 -20 mg/dLPOCT-GLUCOSE [id number] 21:17:00* Test Item Value Reference Range Comments POC-GLUCOSE METER (BEAKER) (test nhma=0867) 351 mg/dL 70-[address] [facility] [address] [facility] [address] HEMOGLOBIN [id number] 20:42:00* Test Item Value Reference Range Comments HEMOGLOBIN A1C (BEAKER) (test pahz=738) 13.3 % 4.3-6.1 POCT-GLUCOSE [id number] 20:32:00* Test Item Value Reference Range Comments POC-GLUCOSE METER (BEAKER) (test wohl=0135) 428 mg/dL 70-[address] [facility] [address] [facility] [address] CSF CELL COUNT W/[id number] 19:59:00* Test Item Value Reference Range Comments APPEARANCE CSF (BEAKER) (test vwhf=744) Clear Clear COLOR CSF (BEAKER) (test cfbq=191) Colorless Colorless RBC CSF (BEAKER) (test meet=303) 0 /cu mm 0-5 WBC CSF (BEAKER) (test wxcy=3143) 1 /cu mm <=5 RBCS FRESH (BEAKER) (test fvsy=4001) Not Applicable NUMBER OF CELLS DIFF'D (BEAKER) (test fsjv=6847) 75 NEUTROPHIL, CSF (BEAKER) (test vego=325) 0 % 0-5 LYMPHS CSF (BEAKER) (test noou=199) 68 % 40-80 MONO/MACROPHAGE CSF (BEAKER) (test iznb=989) 32 % 15-45 EOSINOPHILS CSF (BEAKER) (test uspi=827) 0 % <=0 BASO CSF (BEAKER) (test rkcs=819) 0 % <=0 TUBE NUMBER CSF (BEAKER) (test naxn=5511) 1 [id number] 19:19:00* Test Item Value Reference Range Comments THYROID STIMULATING HORMONE (BEAKER) (test xhsn=327) 1.68 uIU/mL 0.35-4.94 PROTEIN, [id number] 19:14:00* Test Item Value Reference Range Comments PROTEIN CSF (BEAKER) (test txyd=080) 58 mg/dL 15-45 Tube #2GLUCOSE, [id number] 19:08:00* Test Item Value Reference Range Comments GLUCOSE CSF (BEAKER) (test fuar=227) 248 mg/dL 40-70 Tube #2TROPONIN [id number] 19:05:00* Test Item Value Reference Range Comments TROPONIN I (BEAKER) (test jewm=460) 0.02 ng/mL 0.00-0.03 Effective 02/14/2014: Reference Range ChangeNew: 0.00-0.03 Previous 0.00- 0.15Troponin I (TnI) levels must be interpreted in the context of the presenting symptoms and the clinical findings. Elevated TnI levels indicate myocardial damage, but are not specific for ischemic heart disease. Elevated TnI levels are seen in patients with other cardiac conditions (including myocarditis and congestive heart failure), and slight TnI elevations occur in patients with other conditions, including sepsis, renal failure, acidosis, acute neurological disease, and persistent tachyarrhythmia.If last glucose was less than 500, may do bedside glucose instead of serum glucose.RAPID INFLUENZA A &B [id number] 19:04:00* Test Item Value Reference Range Comments RAPID INFLUENZA A AG (BEAKER) (test fcgw=7763) Negative Negative, Inconclusive RAPID INFLUENZA B AG (BEAKER) (test hipc=9452) Negative Negative, Inconclusive BACTERIAL LATEX ANTIGEN [id number] 19:04:00* Test Item Value Reference Range Comments GROUP B STREP ANTIGEN (BEAKER) (test gqai=635) Negative Negative H INFLUENZA B ANTIGEN (BEAKER) (test bxac=899) Negative Negative STREP PNEUMONIAE ANTIGEN (BEAKER) (test bzoj=949) Negative Negative N MENINGITIDIS A/Y AG DETECTION (BEAKER) (test nqja=548) Negative Negative N MENINGITIDIS B/E COLI K1 AG DETECTION (BEAKER) (test cteu=9100) Negative Negative N MENINGITIDIS C/W135 AG DETECTION (BEAKER) (test zdtj=961) Negative Negative [id number] 18:55:00* Test Item Value Reference Range Comments GLUCOSE RANDOM (BEAKER) (test xuhl=094) 484 mg/dL 70-105 Effective 02/14/2014: Reference Range Change-Adult onlyNew: 70-105 Previous : 70-110If last glucose was less than 500, may do bedside glucose instead of serum glucose.BLOOD GAS, [id number] 18:34:00* Test Item Value Reference Range Comments PH ARTERIAL (BEAKER) (test djfh=603) 7.32 7.35-7.45 PCO2 ARTERIAL (BEAKER) (test mzyg=915) 22 mmHg 35-45 PO2 ARTERIAL (BEAKER) (test vtzj=434) 114 mmHg 80-90 O2 SATURATION ARTERIAL (BEAKER) (test esre=497) 97.9 % 96.0-97.0 HCO3 ARTERIAL (BEAKER) (test oghw=130) 11 mmol/L 21-29 BASE EXCESS ARTERIAL (BEAKER) (test thcd=465) -13.3 mmol/L -2.0-3.0 PATIENT TEMPERATURE (BEAKER) (test pjdu=4963) 37.5 C FIO2 (BEAKER) (test ecbc=0224) 21.0 % POCT-GLUCOSE [id number] 18:20:00* Test Item Value Reference Range Comments POC-GLUCOSE METER (BEAKER) (test lkgw=7688) 458 mg/dL 70-110 Notified JORDAN ROBERTO/ TESTED AT [facility] [address] [facility] [address] CBC W/PLT COUNT & AUTO [id number] 18:05:00* Test Item Value Reference Range Comments WHITE BLOOD CELL COUNT (BEAKER) (test djsf=214) 7.2 K/ L 4.0-10.0 RED BLOOD CELL COUNT (BEAKER) (test pzst=900) 3.81 M/ L 4.00-5.00 HEMOGLOBIN (BEAKER) (test pukp=598) 11.7 GM/DL 12.0-15.0 HEMATOCRIT (BEAKER) (test fmtp=742) 34.0 % 36.0-45.0 MEAN CORPUSCULAR VOLUME (BEAKER) (test lbol=031) 89.4 fL 82.0-99.0 MEAN CORPUSCULAR HEMOGLOBIN (BEAKER) (test ebes=823) 30.8 pg 27.0-33.0 MEAN CORPUSCULAR HEMOGLOBIN CONC (BEAKER) (test hnyh=968) 34.5 GM/DL 32.0- 36.0 RED CELL DISTRIBUTION WIDTH (BEAKER) (test rpqs=374) 16.1 % 10.3-14.2 PLATELET COUNT (BEAKER) (test noiz=959) 138 K/CU MM 150-430 MEAN PLATELET VOLUME (BEAKER) (test sxbv=993) 8.0 fL 6.5-10.5 NUCLEATED RED BLOOD CELLS (BEAKER) (test zkyr=881) 0 /100 WBC 0-0 NEUTROPHILS RELATIVE PERCENT (BEAKER) (test ervr=705) 87 % LYMPHOCYTES RELATIVE PERCENT (BEAKER) (test pkdd=336) 3 % MONOCYTES RELATIVE PERCENT (BEAKER) (test cxmp=555) 9 % EOSINOPHILS RELATIVE PERCENT (BEAKER) (test jlai=748) 0 % BASOPHILS RELATIVE PERCENT (BEAKER) (test uozo=491) 1 % NEUTROPHILS ABSOLUTE COUNT (BEAKER) (test vjvu=963) 6.33 K/ L 1.80-8.00 LYMPHOCYTES ABSOLUTE COUNT (BEAKER) (test naen=369) 0.21 K/ L 1.48-4.50 MONOCYTES ABSOLUTE COUNT (BEAKER) (test dffc=090) 0.65 K/ L 0.00-1.30 EOSINOPHILS ABSOLUTE COUNT (BEAKER) (test ywzz=183) 0.01 K/ L 0.00-0.50 BASOPHILS ABSOLUTE COUNT (BEAKER) (test jjhz=519) 0.05 K/ L 0.00-0.20 (MANUAL DIFFERENTIAL)2016-07-31 18:05:00* Test Item Value Reference Range Comments NEUTROPHILS - REL (DIFF) (BEAKER) (test mjnl=2218) 66 % LYMPHOCYTES - REL (DIFF) (BEAKER) (test lbfw=6678) 2 % MONOCYTES - REL (DIFF) (BEAKER) (test fico=2336) 5 % BANDS - REL (DIFF) (BEAKER) (test apgh=9064) 27 % 0-10 NEUTROPHILS - ABS (DIFF) (BEAKER) (test fonu=8857) 4.75 K/ L 1.80-8.00 LYMPHOCYTES - ABS (DIFF) (BEAKER) (test fpvp=4318) 0.14 K/ L 1.48-4.50 MONOCYTES - ABS (DIFF) (BEAKER) (test bioa=3523) 0.36 K/ L 0.00-1.30 BANDS-ABS (DIFF) (BEAKER) (test amxv=4412) 1.9 K/ L 0.0-0.8 TOTAL COUNTED (BEAKER) (test qrju=2668) 100 BANDS + SEGMENTED NEUTROPHILS (BEAKER) (test wcqa=1704) 6.70 PLT MORPHOLOGY (BEAKER) (test fhon=905) Normal DOHLE BODIES (BEAKER) (test wvjw=061) Present VACUOLATED NEUTROPHILS (BEAKER) (test derj=550) Present POLYCHROMATOPHILLIC RBCS(BEAKER) (test obzj=493) 1+ few POCT-GLUCOSE [id number] 17:17:00* Test Item Value Reference Range Comments POC-GLUCOSE METER (BEAKER) (test fucj=4296) 469 mg/dL 70-[address] [facility] [address] [facility] [address] BASIC METABOLIC [id number] 15:30:00* Test Item Value Reference Range Comments SODIUM (BEAKER) (test nnfa=799) 125 meq/L 136-145 POTASSIUM (BEAKER) (test gcom=762) 5.0 meq/L 3.5-5.1 Specimen moderately hemolyzed CHLORIDE (BEAKER) (test hvxi=981) 89 meq/L 98-107 CO2 (BEAKER) (test qpxt=639) 7 meq/L 22-29 BLOOD UREA NITROGEN (BEAKER) (test knyy=725) 34 mg/dL 7-21 CREATININE (BEAKER) (test tgzr=266) 1.95 mg/dL 0.57-1.25 Specimen moderately hemolyzed GLUCOSE RANDOM (BEAKER) (test blbg=138) 581 mg/dL 70-105 CALCIUM (BEAKER) (test swhl=326) 9.3 mg/dL 8.4-10.2 EGFR (BEAKER) (test lawk=2905) 27 mL/min/1.73 sq m ESTIMATED GFR IS NOT ACCURATE CREATININE CLEARANCE IN PREDICTING GLOMERULAR FILTRATION RATE. ESTIMATED GFR IS NOT APPLICABLE FOR DIALYSIS PATIENTS. [id number] 15:27:00* Test Item Value Reference Range Comments MAGNESIUM (BEAKER) (test iync=289) 2.0 mg/dL 1.6-2.6 Specimen moderately hemolyzed HEPATIC FUNCTION [id number] 15:27:00* Test Item Value Reference Range Comments TOTAL PROTEIN (BEAKER) (test zdok=091) 7.3 gm/dL 6.0-8.3 Specimen moderately hemolyzed ALBUMIN (BEAKER) (test uwhi=4709) 3.5 g/dL 3.5-5.0 Specimen moderately hemolyzed BILIRUBIN TOTAL (BEAKER) (test vnpn=463) 0.3 mg/dL 0.2-1.2 Specimen moderately hemolyzed BILIRUBIN DIRECT (BEAKER) (test otjc=644) 0.1 mg/dL 0.1-0.5 Specimen moderately hemolyzed ALKALINE PHOSPHATASE (BEAKER) (test qznr=773) 136 U/L 40-150 AST (SGOT) (BEAKER) (test vmyh=216) 30 U/L 5-34 Specimen moderately hemolyzed ALT (SGPT) (BEAKER) (test xhjk=921) 21 U/L 6-55 Specimen moderately hemolyzed [id number] 15:27:00* Test Item Value Reference Range Comments AMYLASE (BEAKER) (test efji=250) 15 U/L 25-125 Specimen moderately hemolyzed [id number] 15:27:00* Test Item Value Reference Range Comments LIPASE (BEAKER) (test toqg=980) 7 U/L 8-78 [id number] 15:24:00* Test Item Value Reference Range Comments PROTIME (BEAKER) (test rcnk=069) 13.6 seconds 11.7-14.7 INR (BEAKER) (test kmoi=742) 1.1 <=5.9 PARTIAL THROMBOPLASTIN TIME (BEAKER) (test rdhn=949) 23.5 seconds 22.5-36.0 RECOMMENDED COUMADIN/WARFARIN INR THERAPY RANGESSTANDARD DOSE: 2.0 - 3.0 Includes: PROPHYLAXIS for venous thrombosis, systemic embolization; TREATMENT for venous thrombosis and/or pulmonary embolus.HIGH RISK: Target INR is 2.5-3.5 for patients with mechanical heart valves.URINALYSIS W/ [id number] 15 :10:00* Test Item Value Reference Range Comments COLOR (BEAKER) (test tras=289) Yellow CLARITY (BEAKER) (test nrzy=263) Hazy SPECIFIC GRAVITY UA (BEAKER) (test ujwm=536) 1.009 1.001-1.035 PH UA (BEAKER) (test rqli=813) 5.5 5.0-8.0 PROTEIN UA (BEAKER) (test vsgt=815) 200 mg/dL Negative GLUCOSE UA (BEAKER) (test uqgb=485) >1000 mg/dL Negative KETONES UA (BEAKER) (test xsat=279) 80 mg/dL Negative BILIRUBIN UA (BEAKER) (test uqom=631) Positive Negative BLOOD UA (BEAKER) (test zgnn=757) Moderate Negative NITRITE UA (BEAKER) (test boop=400) Negative Negative LEUKOCYTE ESTERASE UA (BEAKER) (test snry=429) Trace Negative UROBILINOGEN UA (BEAKER) (test xhlb=292) 3.0 mg/dL 0.2-1.0 RBC UA (BEAKER) (test zeje=161) 18 /HPF WBC UA (BEAKER) (test idyb=723) 10 /HPF MUCUS (BEAKER) (test gkvz=3680) Occasional SQUAMOUS EPITHELIAL (BEAKER) (test ldwu=823) 9 /HPF HYALINE CASTS (BEAKER) (test jsbc=212) 21 /LPF SOURCE(BEAKER) (test scol=3040) Urine, Clean Catch KETONE, [id number] 15:06:00* Test Item Value Reference Range Comments KETONES, BLOOD (BEAKER) (test flvs=3256) 5.7 mmol/L <0.4 POCT-LACTIC ACID, [id number] 14:59:00* Test Item Value Reference Range Comments POC-LACTIC ACID, VENOUS (BEAKER) (test bzeb=5267) 2.8 mmol/L 0.9-1.[address] [address] POCT-GLUCOSE [id number] 13:59:00* Test Item Value Reference Range Comments POC-GLUCOSE METER (BEAKER) (test iydz=2153) 500 mg/dL 70-110 TESTED AT [address] [address]
--- OUTSIDE RECORDS SUMMARY | 2017-05-04 12:36 | XMS REPORT | Clinical Summary ---
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 Disp. Refills Start End Date Status Date aspirin 81 MG EC tablet Take 81 mg by mouth 2 Active (two) times daily . diphenhydrAMINE Take 50 mg by mouth every Active (BENADRYL) 25 mg tablet night as needed for Sleep. insulin glargine (LANTUS) Inject 25 Units 10 mL 0 03/06/20 Active 100 unit/mL subcutaneously 2 (two) 14 injectionIndications: times daily. Use as Diabetes Mellitus directed atorvastatin (LIPITOR) 80 Take 1 tablet (80 mg 30 tablet 1 08/06/19 08/06/19 Active MG tablet total) by mouth nightly. 17 18 metoprolol (TOPROL-XL) 50 Take 1 tablet (50 mg 60 tablet 1 08/06/19 08/06/19 Active MG 24 hr tablet total) by mouth 2 (two) 17 18 times daily. lisinopril Take 1 tablet (5 mg 30 tablet 1 08/06/19 Active (PRINIVIL,ZESTRIL) 5 MG total) by mouth daily. 17 tablet ezetimibe (ZETIA) 10 mg Take 10 mg by mouth Active tablet daily. cholecalciferol, vitamin Take 5,000 Units by mouth Active D3, 5,000 unit Tab daily. insulin aspart (NOVOLOG) Inject subcutaneously 3 Active 100 unit/mL injection (three) times daily before meals Sliding scale . ticagrelor (BRILINTA) 90 Take 90 mg by mouth 2 Active mg Tab tablet (two) times daily. insulin lispro (HUMALOG) Inject subcutaneously 3 09/19/19 Discontin 100 unit/mL injection (three) times daily 17 ued before meals. lisinopril Take 10 mg by mouth 08/06/19 Discontin (PRINIVIL,ZESTRIL) 10 MG daily. 17 ued tablet predniSONE (DELTASONE) 20 Take 3 tabs PO daily x 12 tablet 0 03/06/20 08/01/19 Discontin MG tablet once on 03/07, followed by 14 17 ued 2 tabs daily PO x3 days, then 1 tab daily PO x3 days furosemide (LASIX) 40 MG Take 1 tablet (40 mg 4 tablet 0 08/07/19 tablet total) by mouth daily for 17 17 3 days. levoFLOXacin (LEVAQUIN) Take 1 tablet (500 mg 11 tablet 0 08/07/19 08/18/19 500 MG tablet total) by mouth daily for 17 17 11 days. polyethylene glycol Use daily per package 08/06/19 09/19/19 Discontin (GLYCOLAX) 17 gram packet instructions. Is over the 17 17 ued counter. potassium chloride SA Take 1 tablet (20 mEq 4 tablet 0 08/07/19 (K-DUR,KLOR-CON) 20 MEQ total) by mouth daily for 17 17 tablet 4 days. Active Problems Problem Noted Date CAD (coronary artery disease) 09/18/2016 Abnormal cardiac function test 09/18/2016 Atherosclerosis of coronary artery of [place] heart with angina pectoris ([facility]) Sepsis due to Escherichia coli ([facility]) 08/05/2016 Pyelonephritis 08/05/2016 E coli bacteremia 08/05/2016 Essential hypertension 08/05/2016 Acute kidney injury (HCC) 08/05/2016 Acute pulmonary edema ([facility]) 08/05/2016 Slow transit constipation 08/05/2016 Primary insomnia 08/02/2016 Bacteremia due to Gram-negative bacteria 08/01/2016 Acute cystitis without hematuria 08/01/2016 Headache(784.0) 07/31/2016 Fever in adult 07/31/2016 Type 1 diabetes mellitus with ketoacidosis without coma ([facility]) 07/31/2016 Supraglottitis 02/27/2014 Supraglottitis without obstruction 02/27/2014 Diabetes ([facility]) 11/15/2013 Encounters Date Type Specialty Care Team Description 12/18/2016 Radha Molina MD Pain of both shoulder Encounter joints 12/18/2016 Radha Molina MD Pain of both shoulder Encounter joints 12/18/2016 Outside Orders Radha Clark MD Pain of both shoulder joints (Primary Dx) 09/18/2016 Hospital Eve Baez MD Encounter 09/18/2016 Orders Only Eve Baez MD 09/18/2016 Procedure Pass 09/18/2016 Surgery Eve Baez MD L CATH & CORONARY ANGIOS 08/14/2016 Hospital Radha Clrak MD Cough Encounter 08/14/2016 Outside Orders Radha Clark MD Cough (Primary Dx) 07/31/2016 [facility] Yimi Sosa MD Type 1 diabetes mellitus - Encounter Kyree Sheppard with ketoacidosis without 08/05/2016 MD Leah coma (HCC) (Primary Masood White MD Dx);Headache, unspecified Silas Baker MD headache type;Fever in Nader Oconnor MD adult;Severe sepsis (HCC);Acute pulmonary edema (HCC);Acute cystitis without hematuria;Bacteremia due to Gram-negative bacteria;Primary insomnia;Complicated UTI (urinary tract infection);Septicemia due to Klebsiella pneumoniae (HCC);Fever, unspecified;Neck pain;E coli bacteremia;Pyelonephritis 07/31/2016 Orders Only General Internal Medicine after 05/03/2016 Social History Tobacco Use Types Packs/Day Years Used Date Never Smoker Alcohol Use Drinks/Week oz/Week Comments Yes seldom Sex Assigned at Date Recorded Not on file Last Filed Vital Signs Vital Sign Reading Time Taken Blood Pressure 119/63 09/18/2016 6:09 PM CDT Pulse 77 09/18/2016 6:09 PM CDT Temperature 36.9 C (98.5 F) 09/18/2016 1:22 PM CDT Respiratory Rate 16 09/18/2016 6:09 PM CDT Oxygen Saturation 98% 09/18/2016 4:59 PM CDT Inhaled Oxygen - - Concentration Weight 62.6 kg (138 lb) 09/18/2016 1:22 PM CDT Height 162.6 cm (5' 4") 09/18/2016 1:22 PM CDT Body Mass Index 23.69 09/18/2016 1:22 PM CDT Plan of Treatment Not on file Implants Implanted Type Area Claims Technician Device Expiration Model / Identifier Date Serial / Lot Device Clsr Angio-Seal Vip 6fr Cardiovasc Right: ST SAL 06/27/2017 [id number] / [id number] - [id number] harjit Bolanos MED:CARDIAC / Implanted: Qty: 1 on 09/18/2016 by [id number] [id number] Eve Baez MD Procedures Procedure Name Priority Date/Time Associated Diagnosis Comments L CATH & CORONARY ANGIOS 09/18/2016 I25.10 4:06 PM CDT Case Notes POP6 POSS PCI CRITICAL CARE Routine 07/31/2016 Results for this 5:39 PM CDT procedure are in the results section. after 05/03/2016 Results * XR shoulder complete 2 views min left (12/18/2016 12:30 PM) Specimen Performing Laboratory [facility] Narrative FINAL REPORT Right shoulder, three views; left shoulder, three views HISTORY: Shoulder pain COMPARISON: None. DISCUSSION: Right shoulder: No acute displaced fracture or dislocation. Visualized soft tissues grossly unremarkable. Left shoulder: No acute displaced fracture or dislocation. Visualized soft tissues grossly unremarkable. IMPRESSION: Unremarkable bilateral shoulder radiographs. No acute osseous abnormality Signed: John Alford MD Report Verified Date/Time:12/18/2016 15:46:34 Reading Location: [address] Radiology Reading Room Procedure Note Interface, External Ris In - 12/18/2016 3:48 PM CDT FINAL REPORT Right shoulder, three views; left shoulder, three views HISTORY: Shoulder pain COMPARISON: None. DISCUSSION: Right shoulder: No acute displaced fracture or dislocation. Visualized soft tissues grossly unremarkable. Left shoulder: No acute displaced fracture or dislocation. Visualized soft tissues grossly unremarkable. IMPRESSION: Unremarkable bilateral shoulder radiographs. No acute osseous abnormality Signed: oJhn Alford MD Report Verified Date/Time: 12/18/2016 15:46:34 Reading Location: [address] Radiology Reading Room * XR shoulder complete 2 views min right (12/18/2016 12:29 PM) Specimen Performing Laboratory [facility] Narrative FINAL REPORT Right shoulder, three views; left shoulder, three views HISTORY: Shoulder pain COMPARISON: None. DISCUSSION: Right shoulder: No acute displaced fracture or dislocation. Visualized soft tissues grossly unremarkable. Left shoulder: No acute displaced fracture or dislocation. Visualized soft tissues grossly unremarkable. IMPRESSION: Unremarkable bilateral shoulder radiographs. No acute osseous abnormality Signed: John Alford MD Report Verified Date/Time:12/18/2016 15:46:34 Reading Location: [address] Radiology Reading Room Procedure Note Interface, External Ris In - 12/18/2016 3:48 PM CDT FINAL REPORT Right shoulder, three views; left shoulder, three views HISTORY: Shoulder pain COMPARISON: None. DISCUSSION: Right shoulder: No acute displaced fracture or dislocation. Visualized soft tissues grossly unremarkable. Left shoulder: No acute displaced fracture or dislocation. Visualized soft tissues grossly unremarkable. IMPRESSION: Unremarkable bilateral shoulder radiographs. No acute osseous abnormality Signed: John Alford MD Report Verified Date/Time: 12/18/2016 15:46:34 Reading Location: [address] Radiology Reading Room * VASCULAR DIAGRAM -SCAN (10/21/2016 8:50 AM) Only the most recent of 2 results within the time period is included. * CARDIAC CATH REPORT - SCAN (09/19/2016 12:10 PM) * POCT , urine (09/18/2016 2:25 PM) Component Value Ref Range Test Urine, POC Negative Control line present?, Yes POC Background clear?, POC Yes UPT Cassette Lot #, POC [id number] UPT Cassette Expiration 11/19/2017 Date, POC Specimen Performing Laboratory Urine * POC-Glucose meter (09/18/2016 2:10 PM) Only the most recent of 43 results within the time period is included. Component Value Ref Range POC-Glucose Meter 94Comment: TESTED AT [address] 70 - 110 mg/dL [address] Specimen Performing Laboratory Blood [facility] [address] [address] * XR Chest 2 Views (08/14/2016 1:08 PM) Specimen Performing Laboratory [facility] Narrative FINAL REPORT PA and Lateral views of the chest dated 08/14/2016 COMPARISON: August 02, 2016 Clinical information: r05 Comment:Heart is normal in size. Pulmonary vasculature is unremarkable. There is trace left pleural effusion with left lower lobe subsegmental atelectasis. The rest of lungs are clear. Previously noted interstitial disease in both lower lobes has resolved. Impression: Trace bilateral pleural effusion with bibasilar subsegmental atelectasis. Signed: Sylvia Anderson MD Report Verified Date/Time:08/14/2016 13:23:00 Reading Location: [address] Radiology Reading Room Procedure Note Interface, External Ris In - 08/14/2016 1:25 PM CDT FINAL REPORT PA and Lateral views of the chest dated 08/14/2016 COMPARISON: August 02, 2016 Clinical information: r05 Comment: Heart is normal in size. Pulmonary vasculature is unremarkable. There is trace left pleural effusion with left lower lobe subsegmental atelectasis. The rest of lungs are clear. Previously noted interstitial disease in both lower lobes has resolved. Impression: Trace bilateral pleural effusion with bibasilar subsegmental atelectasis. Signed: Sylvia Anderson MD Report Verified Date/Time: 08/14/2016 13:23:00 Reading Location: [address] Radiology Reading Room * RHYTHM STRIP - SCAN (08/06/2016 11:00 AM) * CBC with platelet count + automated diff (08/05/2016 4:26 AM) Only the most recent of 6 results within the time period is included. Component Value Ref Range WBC 7.8 4.0 - 10.0 K/ L RBC 3.73 (L) 4.00 - 5.00 M/ L Hemoglobin 10.7 (L) 12.0 - 15.0 GM/DL Hematocrit 33.0 (L) 36.0 - 45.0 % MCV 88.6 82.0 - 99.0 fL MCH 28.7 27.0 - 33.0 pg MCHC 32.4 32.0 - 36.0 GM/DL RDW 17.9 (H) 10.3 - 14.2 % Platelets 279 150 - 430 K/CU MM MPV 7.2 6.5 - 10.5 fL nRBC 0 0 - 0 /100 WBC % Neutros 73 % % Lymphs 13 % % Monos 13 % % Eos 1 % % Baso 0 % # Neutros 5.73 1.80 - 8.00 K/ L # Lymphs 0.99 (L) 1.48 - 4.50 K/ L # Monos 1.01 0.00 - 1.30 K/ L # Eos 0.11 0.00 - 0.50 K/ L # Baso 0.01 0.00 - 0.20 K/ L Specimen Performing Laboratory Blood - Arm, [address] [address] Narrative 0.00 1.10 0.00 0.00 0.00 0.00 0.00 0.00 0.00 0.00 0.00 0.00 0.00 0.00 * CBC with platelet count + automated diff (08/05/2016 4:26 AM) Only the most recent of 6 results within the time period is included. Specimen Performing Laboratory Blood Narrative The following orders were created for panel order CBC with platelet count + automated diff. Procedure Abnormality Status --------- - ------ CBC with platelet count ...[[id number]]AbnormalFinal result Please view results for these tests on the individual orders. * Basic Metabolic Panel (08/05/2016 4:26 AM) Only the most recent of 9 results within the time period is included. Component Value Ref Range Sodium 136 136 - 145 meq/L Potassium 4.1 3.5 - 5.1 meq/L Chloride 106 98 - 107 meq/L CO2 19 (L) 22 - 29 meq/L BUN 21 7 - 21 mg/dL Creatinine 0.75 0.57 - 1.25 mg/dL Glucose 151 (H) 70 - 105 mg/dL Calcium 8.9 8.4 - 10.2 mg/dL EGFR 81Comment: ESTIMATED GFR IS NOT ACCURATE mL/min/1.73 sq m CREATININE CLEARANCE IN PREDICTING GLOMERULAR FILTRATION RATE. ESTIMATED GFR IS NOT APPLICABLE FOR DIALYSIS PATIENTS. Specimen Performing Laboratory Blood - Arm, Left [address] [address] * Rapid Strep A screen (08/04/2016 9:08 PM) Component Value Ref Range Strep A Ag Negative Negative Specimen Performing Laboratory Throat [facility] [address] [address] * CT abdomen/pelvis without & with IV contrast (08/04/2016 11:04 AM) Specimen Performing Laboratory [employer] [facility] Narrative FINAL REPORT INDICATION: 50-year-old female with Escherichia coli bacteremia and urinary tract infection. Evaluate for urolithiasis, pyelonephritis, and perinephric abscess. COMPARISON: None. TECHNIQUE: CT of the Abdomen and Pelvis WITHOUT and WITH intravenous contrast. The exam was performed according to our department dose-optimization protocol, which includes automated exposure control, adjustments of mA and kV according to patient size. Iterative reconstructions are also sometimes employed. FINDINGS: LOWER THORAX: There are bilateral low-density layering pleural effusions. Bibasilar subpleural opacities with volume loss most likely representing relaxation atelectasis. Component of infection is also considered. HEPATOBILIARY AND PANCREAS: Liver is normal in contour, size, and density. No suspicious liver lesion is demonstrated. Periportal edema is noted. Gallbladder is unremarkable. There is no biliary ductal dilatation. Pancreas is normal in configuration. No pancreatic mass or ductal dilatation is demonstrated. There is questionable mild atrophy of the pancreatic body and tail and a single 3 mm calcification in the parenchyma of the pancreatic body is noted. SPLEEN: No splenomegaly. UPPER ABDOMINAL LYMPH NODES: No lymphadenopathy. ADRENALS: No adrenal nodules. KIDNEYS / URETERS: Right renal enlargement, heterogeneous enhancement, and perinephric fluid represent pyelonephritis. In the upper pole (axial image 38, coronal image 62) there is a 3 cm area of hypoenhancement which may represent a developing renal abscess. There is no formed abscess. No urinary stones are present. BLADDER: Bladder was mildly distended the time of imaging and there is diffuse mild bladder wall thickening. PELVIC ORGANS: Unremarkable. RETROPERITONEUM: No lymphadenopathy or retroperitoneal mass. VESSELS: Unremarkable. PERITONEUM / OMENTUM / MESENTERY: No peritoneal free fluid or air. Omentum and mesentery are unremarkable. GI TRACT: No evidence of bowel obstruction or infection. Appendix is normal in caliber. There is diffuse mild increase in colonic stool burden. BONES: No suspicious osseous lesion is demonstrated. SOFT TISSUES: There is diffuse mild stranding of the subcutaneous fat. IMPRESSION: Right pyelonephritis. No formed renal abscess. Moderate bilateral pleural effusions with bibasilar subpleural opacities, most likely representing relaxation atelectasis. Component of infection is also considered. Mild constipation. Signed: Peter Viveros MD Report Verified Date/Time:08/04/2016 11:51:11 Reading Location: [facility] Mammo Reading Room Procedure Note Interface, External Ris In - 08/04/2016 11:53 AM CDT FINAL REPORT INDICATION: 50-year-old female with Escherichia coli bacteremia and urinary tract infection. Evaluate for urolithiasis, pyelonephritis, and perinephric abscess. COMPARISON: None. TECHNIQUE: CT of the Abdomen and Pelvis WITHOUT and WITH intravenous contrast. The exam was performed according to our department dose-optimization protocol, which includes automated exposure control, adjustments of mA and kV according to patient size. Iterative reconstructions are also sometimes employed. FINDINGS: LOWER THORAX: There are bilateral low-density layering pleural effusions. Bibasilar subpleural opacities with volume loss most likely representing relaxation atelectasis. Component of infection is also considered. HEPATOBILIARY AND PANCREAS: Liver is normal in contour, size, and density. No suspicious liver lesion is demonstrated. Periportal edema is noted. Gallbladder is unremarkable. There is no biliary ductal dilatation. Pancreas is normal in configuration. No pancreatic mass or ductal dilatation is demonstrated. There is questionable mild atrophy of the pancreatic body and tail and a single 3 mm calcification in the parenchyma of the pancreatic body is noted. SPLEEN: No splenomegaly. UPPER ABDOMINAL LYMPH NODES: No lymphadenopathy. ADRENALS: No adrenal nodules. KIDNEYS / URETERS: Right renal enlargement, heterogeneous enhancement, and perinephric fluid represent pyelonephritis. In the upper pole (axial image 38, coronal image 62) there is a 3 cm area of hypoenhancement which may represent a developing renal abscess. There is no formed abscess. No urinary stones are present. BLADDER: Bladder was mildly distended the time of imaging and there is diffuse mild bladder wall thickening. PELVIC ORGANS: Unremarkable. RETROPERITONEUM: No lymphadenopathy or retroperitoneal mass. VESSELS: Unremarkable. PERITONEUM / OMENTUM / MESENTERY: No peritoneal free fluid or air. Omentum and mesentery are unremarkable. GI TRACT: No evidence of bowel obstruction or infection. Appendix is normal in caliber. There is diffuse mild increase in colonic stool burden. BONES: No suspicious osseous lesion is demonstrated. SOFT TISSUES: There is diffuse mild stranding of the subcutaneous fat. IMPRESSION: Right pyelonephritis. No formed renal abscess. Moderate bilateral pleural effusions with bibasilar subpleural opacities, most likely representing relaxation atelectasis. Component of infection is also considered. Mild constipation. Signed: Peter Viveros MD Report Verified Date/Time: 08/04/2016 11:51:11 Reading Location: [facility] Mammo Reading Room * Blood culture (08/04/2016 5:15 AM) Only the most recent of 5 results within the time period is included. Component Value Ref Range Result No growth in 5 days Specimen Performing Laboratory Blood - Arm, [place] [address] * Manual Differential (08/04/2016 5:06 AM) Only the most recent of 3 results within the time period is included. Component Value Ref Range % Neutros (manual) 70 % % Lymphs (manual) 5 % % Monos (manual) 8 % % Eos (manual) 3 % % Bands (manual) 14 (H) 0 - 10 % # Neutros (manual) 4.90 1.80 - 8.00 K/ L # Lymphs (manual) 0.35 (L) 1.48 - 4.50 K/ L # Monos (manual) 0.56 0.00 - 1.30 K/ L # Eos (manual) 0.21 0.00 - 0.50 K/ L # Bands (manual) 1.0 (H) 0.0 - 0.8 K/ L Total Counted 100 Bands plus Segmented 5.88 Neutrophils WBC Morphology Normal Platelet Morphology Normal RBC Morphology Normal Specimen Performing Laboratory Blood [address] [address] * Phosphorus (08/04/2016 5:06 AM) Only the most recent of 8 results within the time period is included. Component Value Ref Range Phosphorus 3.3 2.3 - 4.7 mg/dL Specimen Performing Laboratory Blood [address] [address] * Magnesium (08/04/2016 5:06 AM) Only the most recent of 8 results within the time period is included. Component Value Ref Range Magnesium 2.3 1.6 - 2.6 mg/dL Specimen Performing Laboratory Blood [address] [address] * Urine culture (08/03/2016 5:50 PM) Only the most recent of 2 results within the time period is included. Component Value Ref Range Result No growth Specimen Performing Laboratory Urine - Urine, [facility] Catch [address] [place] [address] * Urinalysis w/Microscopic (08/03/2016 5:49 PM) Only the most recent of 2 results within the time period is included. Component Value Ref Range Color, UA Yellow Clarity, UA Hazy Specific Stuart, UA 1.015 1.001 - 1.035 pH, UA 5.5 5.0 - 8.0 Protein, UA 30 mg/dL (A) Negative Glucose, UA Negative Negative Ketones, UA Negative Negative Bilirubin, UA Negative Negative Blood, UA Trace (A) Negative Nitrite, UA Negative Negative Leukocytes, UA Small (A) Negative Urobilinogen, UA 0.2 0.2 - 1.0 mg/dL RBC, UA 1 /HPF WBC, UA 5 /HPF Squam Epithel, UA 5 /HPF Specimen Source Urine, Clean Catch Specimen Performing Laboratory Urine - Urine, [facility] Catch [address] [place] [address] * XR chest 1 view portable / bedside (08/02/2016 11:00 AM) Only the most recent of 4 results within the time period is included. Specimen Performing Laboratory [facility] Narrative FINAL REPORT Chest, one view. HISTORY: Hypoxia COMPARISON: 08/01/2016 IMPRESSION: No significant interval change. Unchanged moderate interstitial edema and central venous congestion. Right IJ catheter unchanged in position. Cardiomediastinal silhouette is unremarkable. Possible trace left pleural effusion. No identifiable pneumothorax. Signed: John Alford MD Report Verified Date/Time:08/02/2016 11:40:09 Reading Location: [facility] B1 C013Y CT Body Reading Room Procedure Note Interface, External Ris In - 08/02/2016 11:42 AM CDT FINAL REPORT Chest, one view. HISTORY: Hypoxia COMPARISON: 08/01/2016 IMPRESSION: No significant interval change. Unchanged moderate interstitial edema and central venous congestion. Right IJ catheter unchanged in position. Cardiomediastinal silhouette is unremarkable. Possible trace left pleural effusion. No identifiable pneumothorax. Signed: John Alford MD Report Verified Date/Time: 08/02/2016 11:40:09 Reading Location: [facility] Body Reading Room * Double-Stranded DNA (dsDNA) Antibody (08/02/2016 4:40 AM) Component Value Ref Range ds DNA Ab Negative Specimen Performing Laboratory Blood - Central Venous [facility] [address] [place] [address] * Anti-Nuclear Antibody (AMADOU) (08/02/2016 4:40 AM) Component Value Ref Range AMADOU Negative Negative Specimen Performing Laboratory Blood - Central Venous [facility] [address] [place] [address] * Troponin I (08/01/2016 5:49 PM) Only the most recent of 5 results within the time period is included. Component Value Ref Range Troponin I 1.45 (HH) 0.00 - 0.03 ng/mL Specimen Performing Laboratory Blood - Central Venous [facility] [address] [place] [address] Narrative Effective 02/14/2014: Reference Range Change New: 0.00-0.03 Previous 0.00-0.15 Troponin I (TnI) levels must be interpreted in [...] failure, acidosis, acute neurological disease, and persistent tachyarrhythmia. * Lactic acid, venous, whole blood (08/01/2016 5:49 PM) Only the most recent of 5 results within the time period is included. Component Value Ref Range Lactate, Venous 0.9Comment: Specimen slightly hemolyzed 0.5 - 2.2 mmol/L Specimen Performing Laboratory Blood - Central Venous [facility] Line [address] [place] [address] Narrative Effective 08/01/2015: Units/Reference Range Change New: 0.5-2.2 mmol/LPrevious: 5-20 mg/dL * Potassium (08/01/2016 5:49 PM) Component Value Ref Range Potassium 3.7 3.5 - 5.1 meq/L Specimen Performing Laboratory Blood - Central Venous [facility] Line [address] [place] [address] * Glucose (08/01/2016 5:49 PM) Only the most recent of 2 results within the time period is included. Component Value Ref Range Glucose 200 (H) 70 - 105 mg/dL Specimen Performing Laboratory Blood - Central Venous [facility] Line [address] [place] [address] Narrative Effective 02/14/2014: Reference Range Change-Adult only New: 70-105 Previous: 70-110 * 2D Echo W/Doppler(CW/PW/Color) (08/01/2016 8:09 AM) Specimen Performing Laboratory [facility] Narrative Echocardiography Laboratory [address] [place] [address] Voice:[phone] Transthoracic Echocardiogram Pat.Name:ADAM MENDEZ Pat.ID:[id number] .Date: 08/01/2016Refer.MD:DEANDRA PRICE Exam Time: 8:09:00 AMStudy Type:Echo Complete Height:64inWeight:149lb BSA: 1.73 m2 DOBAge:1965 ,50Y Sex: FEMALEBP: 127/75 HR:111 bpm Sonogrphr: ROLANDA Weldon Pat. Stat.:Inpatient Room:3099 Reason for Study:LV function History / Clinical:Diabetes, Hyperlipidemia, Hypertension Procedures:2D ECHO W/ DOPPLER (CW/PW/COLOR), Portable, Definity contrast done SUMMARY: Left ventricular chamber size (by PSLAX dimension) is normal (female - LVIDd 3.8-5.2 cm). All of the LV segments contract normally. Estimated LVEF by qualitative assessment is normal (> 60%). Degree of diastolic dysfunction (LAP assessment) is inconclusive due to Tachycardia. The right ventricular chamber size and systolic function are within normal limits. Mild mitral annular calcification. Unable to estimate peak systolic PA pressure; inadequate TR velocity signal. No pericardial effusion is visualized. No prior exam available for comparison. FINDINGS: Rhythm/BP: Sinus tachycardia during the exam. LV: All of the LV segments contract normally. Global LV systolic functionis normal. No evidence of LV hypertrophy. Left ventricularchamber size (by PSLAX dimension) is normal (female-LVIDd 3.8-5.2 cm). Estimated LVEF by qualitative assessmentis normal (> 60%). LV endocardium is adequately visualizedwithIV contrast. Estimation of LV systolic functionis less reliable in the presence of tachycardia. Degreeof diastolic dysfunction (LAP assessment) is inconclusivedue to Tachycardia. LA: LA size is normal (16-34 ml/m2). RV: The right ventricular chamber size and systolic function are withinnormal limits. RA: RA cavity size is normal. AV: Mild AoV cusp thickening. No evidence of aortic stenosis. AoVcusp mobility is normal. Mild AoV cusp calcification. MV: Mild MV leaflet thickening. Mild mitral annular calcification. TV: TV structure appears normal by available views. Unable to estimatepeak systolic PA pressure; inadequate TR velocity signal. PV: Normal PV structure and function. AO: Aortic root size (Sinus of Valsalva diameter) is normal. Proximalascending aorta size is normal. Pericard: No pericardial effusion is visualized. Systemic Veins: The estimated RA pressure by IVC dynamics 5-10 mmHg. PA/PV/Pleural: The right upper pulmonary vein (RUPV) is normal. Comparison: No prior exam available for comparison. MEASUREMENTS: 2D LA Sng Plane LA Vol39.6 mlIndex 22.9 ml/m2 LA Area 14.9 cm2(8.8-23.4) Aorta Ao Asc2.87 cm (2.1-3.4) Parasternal Long Verdon Ao An 1.99 cm (1.4-2.6) LV%fs 35.3 %(25-46) Ao Rtd3.17 cmLVPWd 0.833 cm IVSd 0.674 cm LA Ds 2.86 cm (2.3-3.8) LVIDd 3.88 cm (4.3-5.1)* LV Wmn 0.753 cm LVIDs 2.51 cm (2-4) DOPPLER AV LVOT For Flow [id number] cm/s (70-110)* LVOT CO 7.09 l/min LVOT VTI20.8 cmLVOT CI 4.1 l/min/m2 LVOTpkPG5.63 mmHgLVOT Area 3.14 cm2 LVOTmnPG3.13 mmHgHR 108 bpm LVOT SV 65.4 ml Aortic Valve AV DI0.682 SVi (LVOT) 37.8 AV AV For Flow/PAOLA AV pkVel 199 cm/s (100-170)* AV AC/ET 0.262 AV mnVel 147 cm/sAVpkAcRt 3652 cm/s2 AV pkPG 15.9 mmHgAV DeRt 956 cm/s2 AV mnPG 9.57 mmHgArea (VTI) 2.14 cm2(3-5)* AV VTI30.6 cmArea (Alex) 1.87 cm2(3-5)* AV ET208 msec AV AC 55 msec (83-118)* Signed 08/01/2016 10:31 AM Jeffrey Montague M.D. Procedure Note Interface, External Ris In - 08/01/2016 10:32 AM CDT Echocardiography Laboratory [address] [place] [id number] Voice: [phone] Transthoracic Echocardiogram Pat.Name: ADAM MENDEZ Pat.ID: [id number] .Date: 08/01/2016 Refer.MD: DEANDRA PRICE Exam Time: 8:09:00 AM Study Type:Echo Complete Height: 64in Weight: 149lb BSA: 1.73 m2 Age: 6 1965,50Y Sex: FEMALE BP: 127/75 HR: 111 bpm Sonogrphr: ROLANDA Weldon Pat. Stat.:Inpatient Room: [facility] Reason for Study:LV function History / Clinical:Diabetes, Hyperlipidemia, Hypertension Procedures:2D ECHO W/ DOPPLER (CW/PW/COLOR), Portable, Definity contrast done SUMMARY: Left ventricular chamber size (by PSLAX dimension) is normal (female - LVIDd 3.8-5.2 cm). All of the LV segments contract normally. Estimated LVEF by qualitative assessment is normal (> 60%). Degree of diastolic dysfunction (LAP assessment) is inconclusive due to Tachycardia. The right ventricular chamber size and systolic function are within normal limits. Mild mitral annular calcification. Unable to estimate peak systolic PA pressure; inadequate TR velocity signal. No pericardial effusion is visualized. No prior exam available for comparison. FINDINGS: Rhythm/BP: Sinus tachycardia during the exam. LV: All of the LV segments contract normally. Global LV systolic function is normal. No evidence of LV hypertrophy. Left ventricular chamber size (by PSLAX dimension) is normal (female - LVIDd 3.8-5.2 cm). Estimated LVEF by qualitative assessment is normal (> 60%). LV endocardium is adequately visualized with IV contrast. Estimation of LV systolic function is less reliable in the presence of tachycardia. Degree of diastolic dysfunction (LAP assessment) is inconclusive due to Tachycardia. LA: LA size is normal (16-34 ml/m2). RV: The right ventricular chamber size and systolic function are within normal limits. RA: RA cavity size is normal. AV: Mild AoV cusp thickening. No evidence of aortic stenosis. AoV cusp mobility is normal. Mild AoV cusp calcification. MV: Mild MV leaflet thickening. Mild mitral annular calcification. TV: TV structure appears normal by available views. Unable to estimate peak systolic PA pressure; inadequate TR velocity signal. PV: Normal PV structure and function. AO: Aortic root size (Sinus of Valsalva diameter) is normal. Proximal ascending aorta size is normal. Pericard: No pericardial effusion is visualized. Systemic Veins: The estimated RA pressure by IVC dynamics 5-10 mmHg. PA/PV/Pleural: The right upper pulmonary vein (RUPV) is normal. Comparison: No prior exam available for comparison. MEASUREMENTS: 2D LA Sng Plane LA Vol 39.6 ml Index 22.9 ml/m2 LA Area 14.9 cm2 (8.8-23.4) Aorta Ao Asc 2.87 cm (2.1-3.4) Parasternal Long Verdon Ao An 1.99 cm (1.4-2.6) LV%fs 35.3 % (25-46) Ao Rtd 3.17 cm LVPWd 0.833 cm IVSd 0.674 cm LA Ds 2.86 cm (2.3-3.8) LVIDd 3.88 cm (4.3-5.1)* LV Wmn 0.753 cm LVIDs 2.51 cm (2-4) DOPPLER AV LVOT For Flow LVOTpkVel 119 cm/s (70-110)* LVOT CO 7.09 l/min LVOT VTI 20.8 cm LVOT CI 4.1 l/min/m2 LVOTpkPG 5.63 mmHg LVOT Area 3.14 cm2 LVOTmnPG 3.13 mmHg HR 108 bpm LVOT SV 65.4 ml Aortic Valve AV DI 0.682 SVi (LVOT) 37.8 AV AV For Flow/PAOLA AV pkVel 199 cm/s (100-170)* AV AC/ET 0.262 AV mnVel 147 cm/s AVpkAcRt 3652 cm/s2 AV pkPG 15.9 mmHg AV DeRt 956 cm/s2 AV mnPG 9.57 mmHg Area (VTI) 2.14 cm2 (3-5)* AV VTI 30.6 cm Area (Alex) 1.87 cm2 (3-5)* AV ET 208 msec AV AC 55 msec (83-118)* Signed 08/01/2016 10:31 AM Jeffrey Montague M.D. * ECG 12 lead (08/01/2016 7:25 AM) Only the most recent of 2 results within the time period is included. Specimen Performing Laboratory [employer] MUSE Narrative Ventricular Rate 114 BPM Atrial Rate 114 BPM P-R Interval 160 ms QRS Duration 78 ms Q-T Interval 340 ms QTC Calculation(Bazett) 468 ms P Verdon 57 degrees R Verdon 51 degrees T Verdon 70 degrees Sinus tachycardia Otherwise normal ECG When compared with ECG of 01-AUG-2016 07:24, No significant change was found Confirmed by MD OLE, IHAB ([id number]) on 08/01/2016 9:30:51 PM Procedure Note Interface, External Ris In - 08/01/2016 9:30 PM CDT Ventricular Rate 114 BPM Atrial Rate 114 BPM P-R Interval 160 ms QRS Duration 78 ms Q-T Interval 340 ms QTC Calculation(Bazett) 468 ms P Verdon 57 degrees R Verdon 51 degrees T Verdon 70 degrees Sinus tachycardia Otherwise normal ECG When compared with ECG of 01-AUG-2016 07:24, No significant change was found Confirmed by MD OLE, IHAB ([id number]) on 08/01/2016 9:30:51 PM * B-type Natriuretic Factor (BNP) (07/31/2016 10:24 PM) Component Value Ref Range BNP 269 (H) 0 - 100 pg/mL Specimen Performing Laboratory Blood [facility] [address] [place] [address] * Procalcitonin (07/31/2016 9:41 PM) Component Value Ref Range Procalcitonin 7.91 (H) <0.05 ng/mL Specimen Performing Laboratory Blood [facility] [address] [place] [address] Narrative SEPSIS RISK (ng/mL) Low:0.05-0.50 Intermediate: 0.51-2.00 High: >=2.01 * Protein, CSF (07/31/2016 6:38 PM) Component Value Ref Range Protein, CSF 58 (H) 15 - 45 mg/dL Specimen Performing Laboratory Cerebrospinal Fluid [facility] CSF, tube 3 [address] [place] [address] Narrative Tube #2 * Glucose, CSF (07/31/2016 6:38 PM) Component Value Ref Range Glucose, CSF 248 (H) 40 - 70 mg/dL Specimen Performing Laboratory Cerebrospinal Fluid [facility] CSF, tube 2 [address] [place] [address] Narrative Tube #2 * Influenza A H1N1 PCR (07/31/2016 6:32 PM) Component Value Ref Range Influenza A RNA Not Detected Not Detected, Inconclusive Novel H1N1 RNA Not Detected Not Detected, Inconclusive Specimen Performing Laboratory Nasal - Nasopharyngeal [facility] Swab [address] [place] [address] Narrative These assays were performed by real-time RT-PCR (reservoir caretaker-PCR) utilizing fluorogenic hydrolysis probe technology for the detection of human Influenza A viruses and the differential detection of novel H1N1 Influenza virus in respiratory specimens. The test is composed of (1) an RNA extraction from patient specimen, and (2) reservoir caretaker-PCR amplification and detection with human Influenza A and novel [id number] primers and probes. A well-conserved region of the Influenza A matrix gene is targeted in one set of reactions to identify both seasonal Influenza A and novel H1N1 Influenza virus in the specimen.In addition, a specific region of the hemagglutinin gene is targeted to differentiate the novel H1N1 virus from the seasonal human influenza. An internal control is used to confirm PCR amplification.Genetic variation and other factors can affect the accuracy of nucleic acid testing; therefore, the results should be interpreted in light of clinical data. This test was developed and its performance characteristics determined by the [facility] Pathology Department, Section of Molecular Pathology.It has not been cleared or approved by the U.S. Food and Drug Administration (FDA).Since FDA approval is not required for clinical use of the test, validation was done as required by The Clinical Laboratory Amendments of 1988. * Rapid Influenza A&B Screen (07/31/2016 6:32 PM) Component Value Ref Range Rapid Influenza A Antigen Negative Negative, Inconclusive Rapid influenza B Antigen Negative Negative, Inconclusive Specimen Performing Laboratory Nasal - Nasopharyngeal [facility] Swab [address] [place] [id number] * CSF cell count with differential (07/31/2016 6:32 PM) Only the most recent of 2 results within the time period is included. Component Value Ref Range Appearance Clear Clear Color Colorless Colorless RBCs 0 0 - 5 /cu mm WBCs 1 <=5 /cu mm RBCs Fresh? Not Applicable # of Cells Diff'd 75 % Neutros 0 0 - 5 % % Lymphs 68 40 - 80 % % Monos 32 15 - 45 % % Eos 0 <=0 % % Baso 0 <=0 % Tube Number 1 Specimen Performing Laboratory Cerebrospinal Fluid - [facility] CSF, tube [address] [place] [id number] * Bacterial latex antigen detection (07/31/2016 6:30 PM) Component Value Ref Range Strep Group B Ag Negative Negative H influenza B Ag Negative Negative Strep pneumo Ag Negative Negative N Meningitidis C/W135 Ag Negative Negative N Meningitidis B/E coli Negative Negative K1 Ag N Meningitidis C/W135 Ag Negative Negative Specimen Performing Laboratory Cerebrospinal Fluid [address] [address] * CSF culture + gram stain (07/31/2016 6:29 PM) Component Value Ref Range Result No growth Gram Stain Result No WBCs Gram Stain Result No organisms seen Specimen Performing Laboratory Cerebrospinal Fluid [address] [address] * Blood gas, arterial (07/31/2016 6:26 PM) Component Value Ref Range pH, Arterial 7.32 (L) 7.35 - 7.45 pCO2, Arterial 22 (L) 35 - 45 mmHg pO2, Arterial 114 (H) 80 - 90 mmHg O2 Sat, Arterial 97.9 (H) 96.0 - 97.0 % HCO3, Arterial 11 (L) 21 - 29 mmol/L Base Excess, Arterial -13.3 (L) -2.0 - 3.0 mmol/L Patient Temperature 37.5 C FIO2 21.0 % Specimen Performing Laboratory Blood, Arterial - Line, [facility] Arterial [address] [place] [address] * TSH (07/31/2016 6:25 PM) Component Value Ref Range TSH 1.68 0.35 - 4.94 uIU/mL Specimen Performing Laboratory Blood [facility] [address] [place] [address] * Hemoglobin A1c (07/31/2016 6:25 PM) Component Value Ref Range Hemoglobin A1C 13.3 (H) 4.3 - 6.1 % Specimen Performing Laboratory Blood [facility] [address] [place] [address] * ED ECG Interpretation (07/31/2016 5:39 PM) Yimi Camacho MD 07/31/20165:39 PM History Chief Complaint Patient presents with Fever Emesis Headache Patient is a 50 y.o. female presenting with fever. The history is provided by the patient. FeverThe onset of symptoms was 5 days ago. Temp source:Oral Onset quality:Gradual Duration:5 days Timing:Constant Progression:Unchanged Chronicity:New Relieved by:Nothing Worsened by:Nothing tried Ineffective treatments:None tried Associated symptoms: headaches, nausea and vomiting No Known Allergies Past Medical History Diagnosis Date Diabetes mellitus (HCC) Hypertension Hyperlipidemia Past Surgical History Procedure Laterality Date section History reviewed. No pertinent family history. History Substance Use Topics Smoking status: Never Smoker Smokeless tobacco: Not on file Alcohol Use: No Review of Systems Constitutional: Positive for fever. Gastrointestinal: Positive for nausea and vomiting. Neurological: Positive for headaches. All other systems reviewed and are negative. Physical Exam BP 163/76 | Pulse 129 | Temp(Src) 98.7 F (37.1 C) | Resp 19 | Ht 1.626 m (5' 4.02") | Wt 63.504 kg (140 lb) | BMI 24.02 kg/m2 | SpO2 98% Physical Exam Nursing note and vitals reviewed. Constitutional: She is oriented to person, place, and time. She appears well-developed and well-nourished. No distress. HENT: Head: Normocephalic and atraumatic. Right Ear: External ear normal. Left Ear: External ear normal. Dry mucous membranes Eyes: Conjunctivae are normal. Right eye exhibits no discharge. Left eye exhibits no discharge. No scleral icterus. Neck: Normal range of motion. Neck supple. No JVD present. No tracheal deviation present. No thyromegaly present. Cardiovascular: Regular rhythm, normal heart sounds and intact distal pulses. tachycardic Pulmonary/Chest: Effort normal and breath sounds normal. No stridor. No respiratory distress. She has no wheezes. Abdominal: Soft. Bowel sounds are normal. She exhibits no distension. There is no tenderness. There is no rebound and no guarding. Musculoskeletal: Normal range of motion. She exhibits no edema and no tenderness. Lymphadenopathy: She has no cervical adenopathy. Neurological: She is alert and oriented to person, place, and time. Coordination normal. Skin: Skin is warm. No rash noted. She is not diaphoretic. No erythema. No pallor. Neurologic Exam Mental Status Oriented to person, place, and time. Ortho Exam ED Course ECG/EKG Interpretation Date/Time: 07/31/2016 2:35 PM Performed by: YIMI SOSA Authorized by: YIMI SOSA The ECG was interpreted by ED physician. The ECG is interpreted as sinus tachycardia. Rate is tachycardic. Heart rate is 127 BPM. Conduction: conduction normal. ST segments normal. T waves normal. Verdon is normal. ECG reviewed and does not meet STEMI criteria. 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 Critical care was necessary to treat or prevent imminent or life-threatening deterioration of the following conditions: dehydration (DKA). Critical care was time spent personally by me on the following activities: blood draw for specimens, development of treatment plan with patient or surrogate, discussions with consultants, discussions with primary provider, interpretation of cardiac output measurements, evaluation of patient's response to treatment, obtaining history from patient or surrogate, examination of patient, ordering and performing treatments and interventions, ordering and review of laboratory studies, ordering and review of radiographic studies, pulse oximetry, re-evaluation of patient's condition and review of old charts. MDM Number of Diagnoses or Management Options Fever in adult: new and requires workup Headache, unspecified headache type: new and requires workup Type 1 diabetes mellitus with ketoacidosis without coma (HCC): new and requires workup Amount and/or Complexity of Data Reviewed Clinical lab tests: ordered and reviewed Tests in the radiology section of CPT: ordered and reviewed Tests in the medicine section of CPT: ordered and reviewed Discussion of test results with the performing providers: yes Obtain history from someone other than the patient: yes Discuss the patient with other providers: yes Independent visualization of images, tracings, or specimens: yes Risk of Complications, Morbidity, and/or Mortality Presenting problems: high Diagnostic procedures: high Management options: high General comments: CASE D/W MICU TEAM. Critical Care Total time providing critical care: 75-105 minutes Clinical Impression No diagnosis found. Discharge Medications Medication List ASK your doctor about these medications aspirin 81 MG EC tablet diphenhydrAMINE 25 mg tabletCommonly known as:BENADRYL insulin glargine 100 unit/mL injectionCommonly known as: LANTUSInject 25 Units subcutaneously 2 (two) times daily. Use as directed insulin lispro 100 unit/mL injectionCommonly known as:HumaLOG lisinopril 10 MG tabletCommonly known as:PRINIVIL,ZESTRIL Plan Yimi Sosa MD 07/31/16 1439 Yimi Sosa MD 07/31/16 1617 Procedure Note Yimi Sosa MD - 07/31/2016 2:35 PM CDT Formatting of this note may be different from the original. History Chief Complaint Patient presents with Fever Emesis Headache Patient is a 50 y.o. female presenting with fever. The history is provided by the patient. FeverThe onset of symptoms was 5 days ago. Temp source: Oral Onset quality: Gradual Duration: 5 days Timing: Constant Progression: Unchanged Chronicity: New Relieved by: Nothing Worsened by: Nothing tried Ineffective treatments: None tried Associated symptoms: headaches, nausea and vomiting No Known Allergies Past Medical History Diagnosis Date Diabetes mellitus (HCC) Hypertension Hyperlipidemia Past Surgical History Procedure Laterality Date section History reviewed. No pertinent family history. History Substance Use Topics Smoking status: Never Smoker Smokeless tobacco: Not on file Alcohol Use: No Review of Systems Constitutional: Positive for fever. Gastrointestinal: Positive for nausea and vomiting. Neurological: Positive for headaches. All other systems reviewed and are negative. Physical Exam BP 163/76 | Pulse 129 | Temp(Src) 98.7 F (37.1 C) | Resp 19 | Ht 1.626 m (5 ' 4.02") | Wt 63.504 kg (140 lb) | BMI 24.02 kg/m2 | SpO2 98% Physical Exam Nursing note and vitals reviewed. Constitutional: She is oriented to person, place, and time. She appears well- developed and well-nourished. No distress. HENT: Head: Normocephalic and atraumatic. Right Ear: External ear normal. Left Ear: External ear normal. Dry mucous membranes Eyes: Conjunctivae are normal. Right eye exhibits no discharge. Left eye exhibits no discharge. No scleral icterus. Neck: Normal range of motion. Neck supple. No JVD present. No tracheal deviation present. No thyromegaly present. Cardiovascular: Regular rhythm, normal heart sounds and intact distal pulses. tachycardic Pulmonary/Chest: Effort normal and breath sounds normal. No stridor. No respiratory distress. She has no wheezes. Abdominal: Soft. Bowel sounds are normal. She exhibits no distension. There is no tenderness. There is no rebound and no guarding. Musculoskeletal: Normal range of motion. She exhibits no edema and no tenderness. Lymphadenopathy: She has no cervical adenopathy. Neurological: She is alert and oriented to person, place, and time. Coordination normal. Skin: Skin is warm. No rash noted. She is not diaphoretic. No erythema. No pallor. Neurologic Exam Mental Status Oriented to person, place, and time. Ortho Exam ED Course ECG/EKG Interpretation Date/Time: 07/31/2016 2:35 PM Performed by: YIMI SOSA Authorized by: YIMI SOSA The ECG was interpreted by ED physician. The ECG is interpreted as sinus tachycardia. Rate is tachycardic. Heart rate is 127 BPM. Conduction: conduction normal. ST segments normal. T waves normal. Verdon is normal. ECG reviewed and does not meet STEMI criteria. 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 Critical care was necessary to treat or prevent imminent or life-threatening deterioration of the following conditions: dehydration (DKA). Critical care was time spent personally by me on the following activities: blood draw for specimens, development of treatment plan with patient or surrogate, discussions with consultants, discussions with primary provider, interpretation of cardiac output measurements, evaluation of patient's response to treatment, obtaining history from patient or surrogate, examination of patient, ordering and performing treatments and interventions, ordering and review of laboratory studies, ordering and review of radiographic studies, pulse oximetry, re-evaluation of patient's condition and review of old charts. MDM Number of Diagnoses or Management Options Fever in adult: new and requires workup Headache, unspecified headache type: new and requires workup Type 1 diabetes mellitus with ketoacidosis without coma (HCC): new and requires workup Amount and/or Complexity of Data Reviewed Clinical lab tests: ordered and reviewed Tests in the radiology section of CPT: ordered and reviewed Tests in the medicine section of CPT: ordered and reviewed Discussion of test results with the performing providers: yes Obtain history from someone other than the patient: yes Discuss the patient with other providers: yes Independent visualization of images, tracings, or specimens: yes Risk of Complications, Morbidity, and/or Mortality Presenting problems: high Diagnostic procedures: high Management options: high General comments: CASE D/W MICU TEAM. Critical Care Total time providing critical care: 75-105 minutes Clinical Impression No diagnosis found. Discharge Medications Medication List ASK your doctor about these medications aspirin 81 MG EC tablet diphenhydrAMINE 25 mg tablet Commonly known as: BENADRYL insulin glargine 100 unit/mL injection Commonly known as: LANTUS Inject 25 Units subcutaneously 2 (two) times daily. Use as directed insulin lispro 100 unit/mL injection Commonly known as: HumaLOG lisinopril 10 MG tablet Commonly known as: PRINIVIL,ZESTRIL Plan Yimi Sosa MD 07/31/16 1439 Yimi Sosa MD 07/31/16 1617 Yimi Sosa MD 07/31/16 1739 * Critical Care (07/31/2016 5:39 PM) Narrative Yimi Sosa MD 07/31/20165:39 PM History Chief Complaint Patient presents with Fever Emesis Headache Patient is a 50 y.o. female presenting with fever. The history is provided by the patient. FeverThe onset of symptoms was 5 days ago. Temp source:Oral Onset quality:Gradual Duration:5 days Timing:Constant Progression:Unchanged Chronicity:New Relieved by:Nothing Worsened by:Nothing tried Ineffective treatments:None tried Associated symptoms: headaches, nausea and vomiting No Known Allergies Past Medical History Diagnosis Date Diabetes mellitus (HCC) Hypertension Hyperlipidemia Past Surgical History Procedure Laterality Date section History reviewed. No pertinent family history. History Substance Use Topics Smoking status: Never Smoker Smokeless tobacco: Not on file Alcohol Use: No Review of Systems Constitutional: Positive for fever. Gastrointestinal: Positive for nausea and vomiting. Neurological: Positive for headaches. All other systems reviewed and are negative. Physical Exam BP 163/76 | Pulse 129 | Temp(Src) 98.7 F (37.1 C) | Resp 19 | Ht 1.626 m (5' 4.02") | Wt 63.504 kg (140 lb) | BMI 24.02 kg/m2 | SpO2 98% Physical Exam Nursing note and vitals reviewed. Constitutional: She is oriented to person, place, and time. She appears well-developed and well-nourished. No distress. HENT: Head: Normocephalic and atraumatic. Right Ear: External ear normal. Left Ear: External ear normal. Dry mucous membranes Eyes: Conjunctivae are normal. Right eye exhibits no discharge. Left eye exhibits no discharge. No scleral icterus. Neck: Normal range of motion. Neck supple. No JVD present. No tracheal deviation present. No thyromegaly present. Cardiovascular: Regular rhythm, normal heart sounds and intact distal pulses. tachycardic Pulmonary/Chest: Effort normal and breath sounds normal. No stridor. No respiratory distress. She has no wheezes. Abdominal: Soft. Bowel sounds are normal. She exhibits no distension. There is no tenderness. There is no rebound and no guarding. Musculoskeletal: Normal range of motion. She exhibits no edema and no tenderness. Lymphadenopathy: She has no cervical adenopathy. Neurological: She is alert and oriented to person, place, and time. Coordination normal. Skin: Skin is warm. No rash noted. She is not diaphoretic. No erythema. No pallor. Neurologic Exam Mental Status Oriented to person, place, and time. Ortho Exam ED Course ECG/EKG Interpretation Date/Time: 07/31/2016 2:35 PM Performed by: YIMI SOSA Authorized by: YIMI SOSA The ECG was interpreted by ED physician. The ECG is interpreted as sinus tachycardia. Rate is tachycardic. Heart rate is 127 BPM. Conduction: conduction normal. ST segments normal. T waves normal. Verdon is normal. ECG reviewed and does not meet STEMI criteria. 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 Critical care was necessary to treat or prevent imminent or life-threatening deterioration of the following conditions: dehydration (DKA). Critical care was time spent personally by me on the following activities: blood draw for specimens, development of treatment plan with patient or surrogate, discussions with consultants, discussions with primary provider, interpretation of cardiac output measurements, evaluation of patient's response to treatment, obtaining history from patient or surrogate, examination of patient, ordering and performing treatments and interventions, ordering and review of laboratory studies, ordering and review of radiographic studies, pulse oximetry, re-evaluation of patient's condition and review of old charts. MDM Number of Diagnoses or Management Options Fever in adult: new and requires workup Headache, unspecified headache type: new and requires workup Type 1 diabetes mellitus with ketoacidosis without coma (HCC): new and requires workup Amount and/or Complexity of Data Reviewed Clinical lab tests: ordered and reviewed Tests in the radiology section of CPT: ordered and reviewed Tests in the medicine section of CPT: ordered and reviewed Discussion of test results with the performing providers: yes Obtain history from someone other than the patient: yes Discuss the patient with other providers: yes Independent visualization of images, tracings, or specimens: yes Risk of Complications, Morbidity, and/or Mortality Presenting problems: high Diagnostic procedures: high Management options: high General comments: CASE D/W MICU TEAM. Critical Care Total time providing critical care: 75-105 minutes Clinical Impression No diagnosis found. Discharge Medications Medication List ASK your doctor about these medications aspirin 81 MG EC tablet diphenhydrAMINE 25 mg tabletCommonly known as:BENADRYL insulin glargine 100 unit/mL injectionCommonly known as: LANTUSInject 25 Units subcutaneously 2 (two) times daily. Use as directed insulin lispro 100 unit/mL injectionCommonly known as:HumaLOG lisinopril 10 MG tabletCommonly known as:IVIL,ZESTRIL Yimi Calderon MD 07/31/16 1439 Yimi Sosa MD 07/31/16 1617 Procedure Note Yimi Sosa MD - 07/31/2016 2:35 PM CDT Formatting of this note may be different from the original. History Chief Complaint Patient presents with Fever Emesis Headache Patient is a 50 y.o. female presenting with fever. The history is provided by the patient. FeverThe onset of symptoms was 5 days ago. Temp source: Oral Onset quality: Gradual Duration: 5 days Timing: Constant Progression: Unchanged Chronicity: New Relieved by: Nothing Worsened by: Nothing tried Ineffective treatments: None tried Associated symptoms: headaches, nausea and vomiting No Known Allergies Past Medical History Diagnosis Date Diabetes mellitus (HCC) Hypertension Hyperlipidemia Past Surgical History Procedure Laterality Date section History reviewed. No pertinent family history. History Substance Use Topics Smoking status: Never Smoker Smokeless tobacco: Not on file Alcohol Use: No Review of Systems Constitutional: Positive for fever. Gastrointestinal: Positive for nausea and vomiting. Neurological: Positive for headaches. All other systems reviewed and are negative. Physical Exam BP 163/76 | Pulse 129 | Temp(Src) 98.7 F (37.1 C) | Resp 19 | Ht 1.626 m (5 ' 4.02") | Wt 63.504 kg (140 lb) | BMI 24.02 kg/m2 | SpO2 98% Physical Exam Nursing note and vitals reviewed. Constitutional: She is oriented to person, place, and time. She appears well- developed and well-nourished. No distress. HENT: Head: Normocephalic and atraumatic. Right Ear: External ear normal. Left Ear: External ear normal. Dry mucous membranes Eyes: Conjunctivae are normal. Right eye exhibits no discharge. Left eye exhibits no discharge. No scleral icterus. Neck: Normal range of motion. Neck supple. No JVD present. No tracheal deviation present. No thyromegaly present. Cardiovascular: Regular rhythm, normal heart sounds and intact distal pulses. tachycardic Pulmonary/Chest: Effort normal and breath sounds normal. No stridor. No respiratory distress. She has no wheezes. Abdominal: Soft. Bowel sounds are normal. She exhibits no distension. There is no tenderness. There is no rebound and no guarding. Musculoskeletal: Normal range of motion. She exhibits no edema and no tenderness. Lymphadenopathy: She has no cervical adenopathy. Neurological: She is alert and oriented to person, place, and time. Coordination normal. Skin: Skin is warm. No rash noted. She is not diaphoretic. No erythema. No pallor. Neurologic Exam Mental Status Oriented to person, place, and time. Ortho Exam ED Course ECG/EKG Interpretation Date/Time: 07/31/2016 2:35 PM Performed by: YIMI SOSA Authorized by: YIMI SOSA The ECG was interpreted by ED physician. The ECG is interpreted as sinus tachycardia. Rate is tachycardic. Heart rate is 127 BPM. Conduction: conduction normal. ST segments normal. T waves normal. Verdon is normal. ECG reviewed and does not meet STEMI criteria. 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 Critical care was necessary to treat or prevent imminent or life-threatening deterioration of the following conditions: dehydration (DKA). Critical care was time spent personally by me on the following activities: blood draw for specimens, development of treatment plan with patient or surrogate, discussions with consultants, discussions with primary provider, interpretation of cardiac output measurements, evaluation of patient's response to treatment, obtaining history from patient or surrogate, examination of patient, ordering and performing treatments and interventions, ordering and review of laboratory studies, ordering and review of radiographic studies, pulse oximetry, re-evaluation of patient's condition and review of old charts. MDM Number of Diagnoses or Management Options Fever in adult: new and requires workup Headache, unspecified headache type: new and requires workup Type 1 diabetes mellitus with ketoacidosis without coma (HCC): new and requires workup Amount and/or Complexity of Data Reviewed Clinical lab tests: ordered and reviewed Tests in the radiology section of CPT: ordered and reviewed Tests in the medicine section of CPT: ordered and reviewed Discussion of test results with the performing providers: yes Obtain history from someone other than the patient: yes Discuss the patient with other providers: yes Independent visualization of images, tracings, or specimens: yes Risk of Complications, Morbidity, and/or Mortality Presenting problems: high Diagnostic procedures: high Management options: high General comments: CASE D/W MICU TEAM. Critical Care Total time providing critical care: 75-105 minutes Clinical Impression No diagnosis found. Discharge Medications Medication List ASK your doctor about these medications aspirin 81 MG EC tablet diphenhydrAMINE 25 mg tablet Commonly known as: BENADRYL insulin glargine 100 unit/mL injection Commonly known as: LANTUS Inject 25 Units subcutaneously 2 (two) times daily. Use as directed insulin lispro 100 unit/mL injection Commonly known as: HumaLOG lisinopril 10 MG tablet Commonly known as: PRINIVILZESTRIL Plan Yimi Sosa MD 07/31/16 1439 Yimi Sosa MD 07/31/16 1617 Yimi Sosa MD 07/31/16 1739 * FL Lumbar Puncture Image-Guided (07/31/2016 4:32 PM) Specimen Performing Laboratory [facility] Narrative FINAL REPORT REFERRING PHYSICIAN: Yimi Sosa M.D. PROCEDURE: Fluoroscopy guided diagnostic lumbar puncture RADIOLOGIST: Sola Resendiz M.D. INDICATION: Fever, emesis, headache DESCRIPTION OF PROCEDURE: The patient was prepped and draped on the fluoroscopy table following the usual sterile fashion for lumbar puncture. 1% lidocaine was administered for local anesthesia. Using fluoroscopic guidance, a 22-gauge spinal needle was advanced into the thecal sac at the L4-5 level. Approximately 7 cc of clear spinal fluid was removed and sent to the laboratory for the requested studies. There were no periprocedural complications. Fluoroscopy time: 0.1 minutes, 1 fluoroscopic image IMPRESSION: Successful fluoroscopy guided diagnostic lumbar puncture. Signed: Sola Resendiz MD Report Verified Date/Time:07/31/2016 16:57:34 Reading Location: [facility] C013V Neuro Reading Room Procedure Note Interface, External Ris In - 07/31/2016 4:59 PM CDT FINAL REPORT REFERRING PHYSICIAN: Yimi Sosa M.D. PROCEDURE: Fluoroscopy guided diagnostic lumbar puncture RADIOLOGIST: Sola Resendiz M.D. INDICATION: Fever, emesis, headache DESCRIPTION OF PROCEDURE: The patient was prepped and draped on the fluoroscopy table following the usual sterile fashion for lumbar puncture. 1% lidocaine was administered for local anesthesia. Using fluoroscopic guidance, a 22-gauge spinal needle was advanced into the thecal sac at the L4-5 level. Approximately 7 cc of clear spinal fluid was removed and sent to the laboratory for the requested studies. There were no periprocedural complications. Fluoroscopy time: 0.1 minutes, 1 fluoroscopic image IMPRESSION: Successful fluoroscopy guided diagnostic lumbar puncture. Signed: Sola Resendiz MD Report Verified Date/Time: 07/31/2016 16:57:34 Reading Location: [facility] C013V Neuro Reading Room * POC-Lactic Acid, Venous (07/31/2016 2:46 PM) Component Value Ref Range POC-Lactic Acid, Venous 2.8 (H)Comment: TESTED AT [address] 0.9 - 1.7 mmol/L [place] [address] Specimen Performing [place] [address] * PT/aPTT (07/31/2016 2:38 PM) Component Value Ref Range Protime 13.6 11.7 - 14.7 seconds INR 1.1 <=5.9 PTT 23.5 22.5 - 36.0 seconds Specimen Performing Laboratory [address] [address] Narrative RECOMMENDED COUMADIN/WARFARIN INR THERAPY RANGES STANDARD DOSE: 2.0 - 3.0 Includes: PROPHYLAXIS for venous thrombosis, systemic embolization; TREATMENT for venous thrombosis and/or pulmonary embolus. HIGH RISK: Target INR is 2.5-3.5 for patients with mechanical heart valves. * Lipase (07/31/2016 2:38 PM) Component Value Ref Range Lipase 7 (L) 8 - 78 U/L Specimen Performing Laboratory [address] [address] * Amylase (07/31/2016 2:38 PM) Component Value Ref Range Amylase 15 (L)Comment: Specimen moderately hemolyzed 25 - 125 U/L Specimen Performing Laboratory [address] [address] * Ketones, blood (07/31/2016 2:38 PM) Component Value Ref Range Ketones, Blood 5.7 (H) <0.4 mmol/L Specimen Performing Laboratory Blood [address] [address] * Liver Panel (07/31/2016 2:38 PM) Component Value Ref Range Protein, Total 7.3Comment: Specimen moderately hemolyzed 6.0 - 8.3 gm/dL Albumin 3.5Comment: Specimen moderately hemolyzed 3.5 - 5.0 g/dL Total Bilirubin 0.3Comment: Specimen moderately hemolyzed 0.2 - 1.2 mg/dL Bilirubin, Direct 0.1Comment: Specimen moderately hemolyzed 0.1 - 0.5 mg/ dL Alkaline Phosphatase 136 40 - 150 U/L AST 30Comment: Specimen moderately hemolyzed 5 - 34 U/L ALT 21Comment: Specimen moderately hemolyzed 6 - 55 U/L Specimen Performing Laboratory Blood [address] [address] after 05/03/2016
[2017-05-04] MEDS ORDERED: SODIUM CHLORIDE 0.9% 1000ML 1,000 ML IV STA ×2 (13:00)
[2017-05-04] MEDS ORDERED: ONDANSETRON HCL INJ 2 MG/ML VIAL IV STA (13:00)
[2017-05-04 13:52] LABS: BASOPHILS % 0.4 % (0.0-1.0); EOSINOPHILS % 0.2 % (0.0-6.0); HEMATOCRIT 43.5 % (34.2-44.1); HEMOGLOBIN 14.9 g/dL (12.0-16.0); LYMPHOCYTES # (AUTO) 1.5 (1.0-3.2); LYMPHOCYTES % 17.5 % (18.0-39.1); MEAN CORPUSCULAR HEMOGLOBIN 31.8 pg (28-32); MEAN CORPUSCULAR HGB CONC 34.3 g/dL (31-35); MEAN CORPUSCULAR VOLUME 92.8 fL (81-99); MONOCYTES % 11.5 % (4.4-11.3); NEUTROPHILS # (AUTO) 5.9 (2.1-6.9); NEUTROPHILS % 69.8 % (38.7-80.0); PLATELET COUNT 304 x10e3/uL (140-360); RED BLOOD COUNT 4.69 x10e6/uL (3.6-5.1); RED CELL DISTRIBUTION WIDTH 12.7 % (11.7-14.4)
[2017-05-04 14:14] LABS: ALANINE AMINOTRANSFERASE 19 IU/L (0-55); ALBUMIN 3.8 g/dL (3.5-5.0); ALKALINE PHOSPHATASE 81 IU/L (40-150); ANION GAP 25.5 mmol/L (8-16); BLOOD UREA NITROGEN 26 mg/dL (7-26); BUN/CREATININE RATIO 19 (6-25); CALCIUM 8.9 mg/dL (8.4-10.2); CARBON DIOXIDE 13 mmol/L (22-29); CHLORIDE 100 mmol/L (98-107); CREATINE KINASE 64 IU/L (29-168); EST GLOMERULAR FILTRATION RATE 39 ML/MIN (60-); GLUCOSE 126 mg/dL (74-118); POTASSIUM 3.5 mmol/L (3.5-5.1); SODIUM 135 mmol/L (136-145)
[2017-05-04 14:31] LABS: BILIRUBIN,URINE 1+ (NEGATIVE); CLARITY,URINE SL CLOUDY (CLEAR); COLOR,URINE YELLOW (YELLOW); KETONES,URINE 3+ (NEGATIVE); LEUKOCYTE ESTERASE ,URINE NEGATIVE (NEGATIVE); NITRITE,URINE NEGATIVE (NEGATIVE); PROTEIN,URINE DIPSTICK TRACE (NEGATIVE); URINE UROBILINOGEN 0.2 mg/dL (0.2 - 1)
[2017-05-04 14:34] LABS: THYROID STIMULATING HORMONE 4.259 uIU/mL (0.350-4.940)
[2017-05-04 14:42] LABS: WBC,URINE (MAN) 0-5 /HPF (0-5)
[2017-05-04 14:43] LABS: BACTERIA,URINE FEW /HPF; EPITHELIAL CELLS,URINE MODERATE /LPF; MUCUS,URINE MODERATE (RARE)
[2017-05-04] MEDS ORDERED: MORPHINE SULFATE 2 MG/ML SYR IV STA (16:50)
[2017-05-04] MEDS ORDERED: ONDANSETRON HCL INJ 2 MG/ML VIAL IV ONE (17:00)
[2017-05-04] MEDS ORDERED: MORPHINE SULFATE 2 MG/ML SYR IV PRN ×2 (17:15→18:00)
[2017-05-04] MEDS ORDERED: INSULIN DETEMIR 100 UNIT/ML PEN SQ PRN (17:15)
[2017-05-04] MEDS ORDERED: ONDANSETRON HCL INJ 2 MG/ML VIAL IV PRN ×2 (17:15→18:00)
[2017-05-04] MEDS ORDERED: MAGNESIUM SULF 1GRAM/DEXTROSE 100 ML IV PRN (17:15)
[2017-05-04] MEDS ORDERED: POTASSIUM CHLORIDE 20MEQ/100ML 200 ML IV PRN (17:15)
[2017-05-04 17:33] LABS: B-TYPE NATRIURETIC PEPTIDE2 13.2 pg/mL (0-100)
[2017-05-04] MEDS ORDERED: SODIUM CHLORIDE 0.9% 1000ML 1,000 ML IV SCH (18:00)
--- NOTE | 2017-05-04 18:21 | History and Physical ---
CHIEF COMPLAINT: Nausea, vomiting, and dehydration. HPI: This is a 51-year-old female with a known history of type-2 diabetes, who was recently on vacation and had malfunctioning of glucose meter. She comes into the ED with complaints of nausea and vomiting for the last several days. The patient reports that she has been having difficulty keeping any food down and has been having decreased urine output. She feels significantly dry according to the patient. She reports that her glucose monitor stopped working on vacation, and yet she was giving herself some insulin according to her. The patient was evaluated at bedside in the ER. Currently has acetone smell and looks significantly dehydrated with nausea and vomiting. She has been having some difficulty having any kind of liquid. The patient's vital signs were stable when I evaluated her. She had no other complaints at the time. REVIEW OF SYSTEMS: Pertinent positives: Nausea, vomiting, dehydration. Pertinent negatives: Denies any chest pain, palpitations, dysuria, hematuria, frequency, urgency, lightheadedness, dizziness, headache, shortness of breath, or any other complaints. The rest of the 14-point review of systems have been reviewed with the patient and are negative. ALLERGIES: NO KNOWN DRUG ALLERGIES. HOME MEDICATIONS: She currently takes Toujeo 1 injection daily plus premeal NovoLog, and that is it. PAST MEDICAL HISTORY: Type-2 diabetes. SOCIAL HISTORY: Denies drugs or alcohol. She is a social drinker. She lives with her . They are . FAMILY HISTORY: Hypertension and diabetes. SURGICAL HISTORY: Reports none. VITAL SIGNS: Temperature is currently 97.9, pulse 99, respiratory rate 18, blood pressure 133/85. Pulse ox is 100%, and she is on room air. LAB FINDINGS: White count 8.4, hemoglobin 14.9, hematocrit 44, platelets 304. Chemistries: Sodium 135, potassium 3.5, chloride 100, bicarb 13, anion gap 25.5, BUN 26, creatinine 1.4, glucose 126. Lactic acid 7.3, which is normal. Calcium 8.9. LFTs are normal. CK-MB is 6.6, but troponin is 0.016. BNP is pending. Albumin is 3.8. TSH is 4.2. Urine hCG is negative. Toxicology screen: Beta hydroxybutyrate was greater than 2. MICROBIOLOGY: Urine cultures are pending. IMAGING STUDIES: There are no imaging studies. PHYSICAL EXAMINATION GENERAL: Not in acute distress. Alert and oriented times 3. Cooperative on exam. HEENT: Head is normocephalic and atraumatic. Eyes: Pupils are equal, round, and reactive to light bilaterally. The extraocular movements are intact bilaterally. NECK: Supple. Good range of motion. Throat: No evidence of any erythema or exudates in the posterior pharynx. Has poor dentition. She has severe dry oral mucosa and skin tenting. PULMONARY: Clear to auscultation bilaterally. No wheezing, no rales, no rhonchi. No crackles appreciated. CARDIOVASCULAR: Positive S1 and S2. No murmurs, rubs or gallops appreciated. ABDOMEN: Soft, nondistended. Nontender to palpation. Bowel sounds are present. MUSCULOSKELETAL: Strength is 5/5 throughout. No evidence of any musculoskeletal deficit on examination. No weakness appreciated. NEUROLOGIC: Cranial nerves II through XII are grossly intact. No evidence of any neurological deficit on exam. SKIN: Intact. Warm to touch. Good capillary refill. PSYCHIATRIC: Normal affect and mood. EXTREMITIES: No edema. Good range of motion throughout. IMPRESSION 1. Diabetic ketoacidosis with positive urine ketones and positive serum ketones. 2. Anion gap metabolic acidosis secondary to #1. 3. Nausea, vomiting, and dehydration. 4. Acute kidney injury secondary to prerenal azotemia. PLAN: At this time, the patient will be admitted to the ICU. Endocrinology has been consulted. She will be started on an insulin protocol for DKA. The patient was already given 2 L of NS boluses. We will give an additional normal saline bolus times 1 now. Repeat labs in the morning. Start on a clear liquid diet if tolerated. Once the patient's gap is closed and feeling much better, will resume her home insulin regimen. Will continue to monitor glucose checks in the ICU via the insulin DKA protocol. Will continue to follow very closely. Repeat labs in the morning. I spent more than 45 minutes of critical care time on this case. Job#: [id number]
--- OUTSIDE RECORDS SUMMARY | 2017-05-04 20:14 | XMS REPORT | Clinical Summary ---
Author Author [facility] Address Unknown Phone Unavailable Care Team Providers [employer] Manager Name Role Phone Deshaun Clark MD PCP Allergies No Known Allergies Current Medications Prescription Sig. Disp. 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 0 10/15/19 Active [...] 11:07 AM) Specimen Performing Laboratory [facility] [address] [place] [address] Narrative X-rays of theright hand are done.PA, [...] Phone Address Plan / Group BCBS BCBS [id number] PPO CHOICE PPO/[place] [address]
--- OUTSIDE RECORDS SUMMARY | 2017-05-04 20:15 | XMS REPORT | Clinical Summary ---
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0) 07/31/2016 Fever in adult 07/31/2016 Type 1 diabetes mellitus with ketoacidosis without coma ([facility]) 07/31/2016 Supraglottitis 02/27/2014 Supraglottitis without obstruction 02/27/2014 Diabetes ([facility]) 11/15/2013 Encounters Date Type Specialty [...] CATH & CORONARY ANGIOS 08/14/2016 Hospital Radha Clark MD Cough Encounter 08/14/2016 Outside Orders Radha Clark MD Cough (Primary Dx) 07/31/2016 [facility] Oncology Yimi Sosa MD Type 1 diabetes [...] Not on file Implants Implanted Type Area Center Manager Device Expiration Model / Identifier Date Serial / Lot Device Clsr Angio-Seal Vip 6fr Cardiovasc Right: ST SAL 06/27/2017 [id number] / [id number] - [id number] harjit Bolanos MED:CARDIAC / Implanted: Qty: 1 on 09/18/2016 by [id number] Eve Baez MD Procedures Procedure Name Priority [...] MD Report Verified Date/Time:12/18/2016 15:46:34 Reading Location: [address] Radiology Reading Room Procedure Note Interface, [...] Report Verified Date/Time: 12/18/2016 15:46:34 Reading Location: [address] Radiology Reading Room * XR shoulder [...] MD Report Verified Date/Time:12/18/2016 15:46:34 Reading Location: [address] Radiology Reading Room Procedure Note Interface, [...] Report Verified Date/Time: 12/18/2016 15:46:34 Reading Location: [address] Radiology Reading Room * VASCULAR DIAGRAM -SCAN (10/21/2016 8:50 AM) Only the most recent of 2 results within the time period is included. * CARDIAC CATH REPORT - SCAN (09/19/2016 12:10 PM) * POCT , urine (09/18/2016 2:25 PM) Component Value Ref Range Test Urine, POC Negative Control line present?, Yes POC Background clear?, POC Yes UPT Cassette Lot #, POC [id number] UPT Cassette Expiration 11/19/2017 Date, POC Specimen Performing Laboratory Urine * POC-Glucose meter (09/18/2016 2:10 PM) Only the most recent of 43 results within the time period is included. Component Value Ref Range POC-Glucose Meter 94Comment: TESTED AT [address] 70 - 110 mg/dL [address] Specimen Performing Laboratory Blood [facility] [address] [address] * XR Chest 2 Views (08/14/2016 1:08 [...] MD Report Verified Date/Time:08/14/2016 13:23:00 Reading Location: [address] Radiology Reading Room Procedure Note Interface, [...] Report Verified Date/Time: 08/14/2016 13:23:00 Reading Location: [address] Radiology Reading Room * RHYTHM STRIP [...] L Specimen Performing Laboratory Blood - Arm, [address] [address] Narrative 0.00 1.10 0.00 0.00 0.00 0.00 [...] --------- - ------ CBC with platelet count ...[[id number]]AbnormalFinal result Please view results for these tests [...] Specimen Performing Laboratory Blood - Arm, Left [address] [address] * Rapid Strep A screen (08/04/2016 9:08 PM) Component Value Ref Range Strep A Ag Negative Negative Specimen Performing Laboratory Throat [facility] [address] [address] * CT abdomen/pelvis without & with IV contrast (08/04/2016 11:04 AM) Specimen Performing Laboratory eCardio ARACELI Narrative FINAL REPORT INDICATION: 50-year-old female [...] MD Report Verified Date/Time:08/04/2016 11:51:11 Reading Location: [facility] Mammo Reading Room Procedure Note Interface, [...] Report Verified Date/Time: 08/04/2016 11:51:11 Reading Location: [facility] Mammo Reading Room * Blood culture (08/04/2016 5:15 AM) Only the most recent of 5 results within the time period is included. Component Value Ref Range Result No growth in 5 days Specimen Performing Laboratory Blood - [place], [place] [address] * Manual Differential (08/04/2016 5:06 AM) Only [...] RBC Morphology Normal Specimen Performing Laboratory Blood [address] [address] * Phosphorus (08/04/2016 5:06 AM) Only the most recent of 8 results within the time period is included. Component Value Ref Range Phosphorus 3.3 2.3 - 4.7 mg/dL Specimen Performing Laboratory Blood [address] [address] * Magnesium (08/04/2016 5:06 AM) Only the most recent of 8 results within the time period is included. Component Value Ref Range Magnesium 2.3 1.6 - 2.6 mg/dL Specimen Performing Laboratory Blood [address] [address] * Urine culture (08/03/2016 5:50 PM) Only the most recent of 2 results within the time period is included. Component Value Ref Range Result No growth Specimen Performing Laboratory Urine - Urine, [facility] Catch [address] [place] [address] * Urinalysis w/Microscopic (08/03/2016 5:49 PM) Only the most recent of 2 results within the time period is included. Component Value Ref Range Color, UA Yellow Clarity, UA Hazy Specific [place], UA 1.015 1.001 - 1.035 pH, UA [...] Catch Specimen Performing Laboratory Urine - Urine, [facility] Catch [address] [place] [address] * XR chest 1 view portable / [...] MD Report Verified Date/Time:08/02/2016 11:40:09 Reading Location: [facility] B1 C013Y CT Body Reading Room Procedure [...] Report Verified Date/Time: 08/02/2016 11:40:09 Reading Location: [facility] C[facility] Body Reading Room * Double-Stranded DNA (dsDNA) Antibody (08/02/2016 4:40 AM) Component Value Ref Range ds DNA Ab Negative Specimen Performing Laboratory Blood - Central Venous [facility] Line [address] [place] [address] * Anti-Nuclear Antibody (AMADOU) (08/02/2016 4:40 AM) Component Value Ref Range AMADOU Negative Negative Specimen Performing Laboratory Blood - Central Venous [facility] [address] [place] [address] * Troponin I (08/01/2016 5:49 PM) Only the most recent of 5 results within the time period is included. Component Value Ref Range Troponin I 1.45 (HH) 0.00 - 0.03 ng/mL Specimen Performing Laboratory Blood - Central Venous [facility] [address] [place] [address] Narrative Effective 02/14/2014: Reference Range Change New: [...] Specimen Performing Laboratory Blood - Central Venous [facility] Line [address] [place] [address] Narrative Effective 08/01/2015: Units/Reference Range Change New: 0.5-2.2 mmol/LPrevious: 5-20 mg/dL * Potassium (08/01/2016 5:49 PM) Component Value Ref Range Potassium 3.7 3.5 - 5.1 meq/L Specimen Performing Laboratory Blood - Central Venous [facility] Line [address] [place] [address] * Glucose (08/01/2016 5:49 PM) Only the most recent of 2 results within the time period is included. Component Value Ref Range Glucose 200 (H) 70 - 105 mg/dL Specimen Performing Laboratory Blood - Central Venous [facility] Line [address] [place] [address] Narrative Effective 02/14/2014: Reference Range Change-Adult only New: 70-105 Previous: 70-110 * 2D Echo W/Doppler(CW/PW/Color) (08/01/2016 8:09 AM) Specimen Performing Laboratory DIGISONICS Narrative Echocardiography Laboratory [address] [place] [address] Voice:[phone] Transthoracic Echocardiogram Pat.Name:ADAM MENDEZ Pat.ID:[id number] .Date: 08/01/2016Refer.MD:DEANDRA PRICE Exam Time: 8:09:00 AMStudy Type:Echo Complete Height:64inWeight:149lb BSA: 1.73 m2 DOBAge:1965 ,50Y Sex: FEMALEBP: 127/75 HR:111 bpm Sonogrphr: ROLANDA Weldon Pat. Stat.:Inpatient Room:2644 Reason for Study:LV function History / Clinical:Diabetes, [...] Aorta Ao Asc2.87 cm (2.1-3.4) Parasternal Long Bowie Ao An 1.99 cm (1.4-2.6) LV%fs 35.3 %(25-46) Ao Rtd3.17 cmLVPWd 0.833 cm IVSd 0.674 cm LA Ds 2.86 cm (2.3-3.8) LVIDd 3.88 cm (4.3-5.1)* LV Wmn 0.753 cm LVIDs 2.51 cm (2-4) DOPPLER AV LVOT For Flow [id number] cm/s (70-110)* LVOT CO 7.09 l/min LVOT [...] - 08/01/2016 10:32 AM CDT Echocardiography Laboratory [address] [place] [address] Voice: [phone] Transthoracic Echocardiogram Pat.Name: ADAM MENDEZ Pat.ID: [id number] .Date: 08/01/2016 Refer.MD: DEANDRA PRICE Exam Time: 8:09:00 AM Study Type:Echo Complete Height: 64in Weight: 149lb BSA: 1.73 m2 Age: 6 1965,50Y Sex: FEMALE BP: 127/75 HR: 111 bpm Sonogrphr: ROLANDA Weldon Pat. Stat.:Inpatient Room: [facility] Reason for Study:LV function History / Clinical:Diabetes, [...] Ao Asc 2.87 cm (2.1-3.4) Parasternal Long [place] Ao An 1.99 cm (1.4-2.6) LV%fs 35.3 [...] time period is included. Specimen Performing Laboratory eCardio MUSE Narrative Ventricular Rate 114 BPM Atrial Rate 114 BPM P-R Interval 160 ms QRS Duration 78 ms Q-T Interval 340 ms QTC Calculation(Bazett) 468 ms P Bowie 57 degrees R Bowie 51 degrees T Bowie 70 degrees Sinus tachycardia Otherwise normal ECG [...] 340 ms QTC Calculation(Bazett) 468 ms P Bowie 57 degrees R Bowie 51 degrees T Bowie 70 degrees Sinus tachycardia Otherwise normal ECG When compared with ECG of 01-AUG-2016 07:24, No significant change was found Confirmed by MD OLE, IHAB ([id number]) on 08/01/2016 9:30:51 PM * B-type Natriuretic Factor (BNP) (07/31/2016 10:24 PM) Component Value Ref Range BNP 269 (H) 0 - 100 pg/mL Specimen Performing Laboratory Blood [facility] [address] [place] [address] * Procalcitonin (07/31/2016 9:41 PM) Component Value Ref Range Procalcitonin 7.91 (H) <0.05 ng/mL Specimen Performing Laboratory Blood [facility] [address] [place] [address] Narrative SEPSIS RISK (ng/mL) Low:0.05-0.50 Intermediate: 0.51-2.00 High: >=2.01 * Protein, CSF (07/31/2016 6:38 PM) Component Value Ref Range Protein, CSF 58 (H) 15 - 45 mg/dL Specimen Performing Laboratory Cerebrospinal Fluid [facility] CSF, tube 3 [address] [place] [address] Narrative Tube #2 * Glucose, CSF (07/31/2016 6:38 PM) Component Value Ref Range Glucose, CSF 248 (H) 40 - 70 mg/dL Specimen Performing Laboratory Cerebrospinal Fluid [facility] CSF, tube 2 [address] [place] [address] Narrative Tube #2 * Influenza A H1N1 PCR (07/31/2016 6:32 PM) Component Value Ref Range Influenza A RNA Not Detected Not Detected, Inconclusive Novel H1N1 RNA Not Detected Not Detected, Inconclusive Specimen Performing Laboratory Nasal - Nasopharyngeal [facility] Swab [address] [place] [address] Narrative These assays were performed by real-time RT-PCR (blood splatter analyst-PCR) utilizing fluorogenic hydrolysis probe technology for the detection of human Influenza A viruses and the differential detection of novel H1N1 Influenza virus in respiratory specimens. The test is composed of (1) an RNA extraction from patient specimen, and (2) blood splatter analyst-PCR amplification and detection with human Influenza A and novel [id number] primers and probes. A well-conserved region of [...] and its performance characteristics determined by the [facility] Pathology Department, Section of Molecular Pathology.It has [...] Inconclusive Specimen Performing Laboratory Nasal - Nasopharyngeal [facility] Swab [address] [place] [address] * CSF cell count with differential (07/31/2016 [...] 1 Specimen Performing Laboratory Cerebrospinal Fluid - [facility] CSF, tube [address] [place] [address] * Bacterial latex antigen detection (07/31/2016 6:30 PM) Component Value Ref Range Strep Group B Ag Negative Negative H influenza B Ag Negative Negative Strep pneumo Ag Negative Negative N Meningitidis C/W135 Ag Negative Negative N Meningitidis B/E coli Negative Negative K1 Ag N Meningitidis C/W135 Ag Negative Negative Specimen Performing Laboratory Cerebrospinal Fluid [address] [address] * CSF culture + gram stain (07/31/2016 6:29 PM) Component Value Ref Range Result No growth Gram Stain Result No WBCs Gram Stain Result No organisms seen Specimen Performing Laboratory Cerebrospinal Fluid [address] [address] * Blood gas, arterial (07/31/2016 6:26 PM) [...] Specimen Performing Laboratory Blood, Arterial - Line, [facility] Arterial [address] [place] [address] * TSH (07/31/2016 6:25 PM) Component Value Ref Range TSH 1.68 0.35 - 4.94 uIU/mL Specimen Performing Laboratory Blood [facility] [address] [place] [address] * Hemoglobin A1c (07/31/2016 6:25 PM) Component Value Ref Range Hemoglobin A1C 13.3 (H) 4.3 - 6.1 % Specimen Performing Laboratory Blood [facility] [address] [place] [address] * ED ECG Interpretation (07/31/2016 5:39 PM) [...] normal. ST segments normal. T waves normal. Bowie is normal. ECG reviewed and does not meet STEMI criteria. Comments: HOTEL CASINO FLOORPERSON: SR @ 127 BPM Critical Care Performed [...] normal. ST segments normal. T waves normal. Bowie is normal. ECG reviewed and does not meet STEMI criteria. Comments: HOTEL CASINO FLOORPERSON: SR @ 127 BPM Critical Care Performed [...] normal. ST segments normal. T waves normal. Bowie is normal. ECG reviewed and does not meet STEMI criteria. Comments: HOTEL CASINO FLOORPERSON: SR @ 127 BPM Critical Care Performed [...] normal. ST segments normal. T waves normal. Bowie is normal. ECG reviewed and does not meet STEMI criteria. Comments: HOTEL CASINO FLOORPERSON: SR @ 127 BPM Critical Care Performed [...] MD Report Verified Date/Time:07/31/2016 16:57:34 Reading Location: [facility] C013V Neuro Reading Room Procedure Note Interface, [...] Report Verified Date/Time: 07/31/2016 16:57:34 Reading Location: [facility] C013V Neuro Reading Room * POC-Lactic Acid, Venous (07/31/2016 2:46 PM) Component Value Ref Range POC-Lactic Acid, Venous 2.8 (H)Comment: TESTED AT [address] 0.9 - 1.7 mmol/L [place] [address] Specimen [place] [address] * PT/aPTT (07/31/2016 2:38 PM) Component Value Ref Range Protime 13.6 11.7 - 14.7 seconds INR 1.1 <=5.9 PTT 23.5 22.5 - 36.0 seconds Specimen Performing Laboratory [address] [address] Narrative RECOMMENDED COUMADIN/WARFARIN INR THERAPY RANGES STANDARD DOSE: 2.0 - 3.0 Includes: PROPHYLAXIS for venous thrombosis, systemic embolization; TREATMENT for venous thrombosis and/or pulmonary embolus. HIGH RISK: Target INR is 2.5-3.5 for patients with mechanical heart valves. * Lipase (07/31/2016 2:38 PM) Component Value Ref Range Lipase 7 (L) 8 - 78 U/L Specimen Performing Laboratory [address] [address] * Amylase (07/31/2016 2:38 PM) Component Value Ref Range Amylase 15 (L)Comment: Specimen moderately hemolyzed 25 - 125 U/L Specimen Performing Laboratory [address] [address] * Ketones, blood (07/31/2016 2:38 PM) Component Value Ref Range Ketones, Blood 5.7 (H) <0.4 mmol/L Specimen Performing Laboratory Blood [address] [address] * Liver Panel (07/31/2016 2:38 PM) Component [...] - 55 U/L Specimen Performing Laboratory Blood [address] [address] after 05/03/2016
[2017-05-04 22:00] LABS: ANION GAP 21.1 mmol/L (8-16); CALCIUM 7.9 mg/dL (8.4-10.2); CREATININE, SERUM 1.05 mg/dL (0.57-1.11); MAGNESIUM 1.8 MG/DL (1.3-2.1); POTASSIUM 4.1 mmol/L (3.5-5.1)
[2017-05-05] MEDS: SODIUM CHLORIDE 0.9% 1000ML 1,000 ML IV SCH ×5 (00:06→12:23)
[2017-05-05] MEDS ORDERED: DIPHENHYDRAMINE HCL 25 MG CAP PO PRN (00:45)
[2017-05-05] MEDS: DEXTROSE 5%/0.45% SOD CHL 1,000 ML IV SCH ×4 (00:57→23:20)
[2017-05-05] MEDS: INSULIN REGULAR, HUMAN 3ML VL 100 UNIT in SODIUM CHLORIDE 0.9% 99 ML IV SCH ×4 (00:57→18:28)
--- NOTE | 2017-05-05 01:04 | Diagnostic Imaging Report ---
EXAMINATION: CHEST XRAY LINE PLACEMENT INDICATION: PICC line placement. COMPARISON: None FINDINGS: TUBES and LINES: Right upper extremity PICC line with tip overlying the mid SVC LUNGS: Lungs are well inflated. Lungs are clear. There is no evidence of pneumonia or pulmonary edema. PLEURA: No pleural effusion or pneumothorax. HEART AND MEDIASTINUM: The cardiomediastinal silhouette is unremarkable. BONES AND SOFT TISSUES: No acute osseous lesion. Soft tissues are unremarkable. UPPER ABDOMEN: No free air under the diaphragm. IMPRESSION: No acute thoracic abnormality. Signed by: Dr. Jeffrey Sparks M.D. on 05/05/2017 1:01 AM
[2017-05-05 01:18] LABS: ANION GAP 19.8 mmol/L (8-16); BLOOD UREA NITROGEN 13 mg/dL (7-26); BUN/CREATININE RATIO 14 (6-25); CALCIUM 7.6 mg/dL (8.4-10.2); CARBON DIOXIDE 10 mmol/L (22-29); CHLORIDE 112 mmol/L (98-107); CREATININE, SERUM 0.96 mg/dL (0.57-1.11); EST GLOMERULAR FILTRATION RATE > 60 ML/MIN (60-); GLUCOSE 105 mg/dL (74-118); MAGNESIUM 1.9 MG/DL (1.3-2.1); POTASSIUM 3.8 mmol/L (3.5-5.1); SODIUM 138 mmol/L (136-145)
[2017-05-05 05:16] LABS: BASOPHILS % 0.6 % (0.0-1.0); EOSINOPHILS # (AUTO) 0.1 (0.0-0.4); EOSINOPHILS % 1.3 % (0.0-6.0); HEMATOCRIT 31.4 % (34.2-44.1); HEMOGLOBIN 10.7 g/dL (12.0-16.0); LYMPHOCYTES # (AUTO) 1.3 (1.0-3.2); LYMPHOCYTES % 23.7 % (18.0-39.1); MEAN CORPUSCULAR HEMOGLOBIN 31.8 pg (28-32); MEAN CORPUSCULAR HGB CONC 34.1 g/dL (31-35); MEAN CORPUSCULAR VOLUME 93.5 fL (81-99); MONOCYTES # (AUTO) 0.7 (0.2-0.8); MONOCYTES % 12.6 % (4.4-11.3); NEUTROPHILS # (AUTO) 3.3 (2.1-6.9); NEUTROPHILS % 61.4 % (38.7-80.0); PLATELET COUNT 180 x10e3/uL (140-360); RED BLOOD COUNT 3.36 x10e6/uL (3.6-5.1); RED CELL DISTRIBUTION WIDTH 12.8 % (11.7-14.4)
[2017-05-05 06:27] LABS: ANION GAP 13.2 mmol/L (8-16); BLOOD UREA NITROGEN 10 mg/dL (7-26); BUN/CREATININE RATIO 11 (6-25); CALCIUM 7.4 mg/dL (8.4-10.2); CARBON DIOXIDE 14 mmol/L (22-29); CHLORIDE 112 mmol/L (98-107); CREATININE, SERUM 0.87 mg/dL (0.57-1.11); EST GLOMERULAR FILTRATION RATE > 60 ML/MIN (60-); GLUCOSE 111 mg/dL (74-118); MAGNESIUM 1.8 MG/DL (1.3-2.1); POTASSIUM 3.2 mmol/L (3.5-5.1); SODIUM 136 mmol/L (136-145)
[2017-05-05] MEDS ORDERED: POTASSIUM CHLORIDE 20MEQ/100ML 100 ML ONE (06:39)
[2017-05-05 08:45] LABS: ABG HCO3 13 mmol/L (23-28); ABG PCO2 30 mmHg (41-51); ABG PH 7.25 (7.31-7.41); ABG PO2 109 mmHg (80-105)
[2017-05-05] MEDS ORDERED: SODIUM CHLORIDE 0.9% 50ML 100 ML ONE (10:05)
[2017-05-05] MEDS ORDERED: INSULIN REGULAR, HUMAN 100 UNIT/1 ML 3ML VIAL ONE (10:06)
[2017-05-05 10:44] LABS: BASOPHILS % 0.2 % (0.0-1.0); EOSINOPHILS # (AUTO) 0.1 (0.0-0.4); EOSINOPHILS % 1.8 % (0.0-6.0); HEMATOCRIT 34.7 % (34.2-44.1); HEMOGLOBIN 12.1 g/dL (12.0-16.0); LYMPHOCYTES % 16.7 % (18.0-39.1); MEAN CORPUSCULAR HEMOGLOBIN 31.9 pg (28-32); MEAN CORPUSCULAR HGB CONC 34.9 g/dL (31-35); MEAN CORPUSCULAR VOLUME 91.6 fL (81-99); MONOCYTES # (AUTO) 0.9 (0.2-0.8); MONOCYTES % 14.6 % (4.4-11.3); NEUTROPHILS % 66.2 % (38.7-80.0); PLATELET COUNT 164 x10e3/uL (140-360); RED BLOOD COUNT 3.79 x10e6/uL (3.6-5.1); RED CELL DISTRIBUTION WIDTH 13.3 % (11.7-14.4)
[2017-05-05 10:53] LABS: ANION GAP 14.7 mmol/L (8-16); BLOOD UREA NITROGEN 7 mg/dL (7-26); BUN/CREATININE RATIO 8 (6-25); CALCIUM 7.5 mg/dL (8.4-10.2); CARBON DIOXIDE 13 mmol/L (22-29); CHLORIDE 113 mmol/L (98-107); CREATININE, SERUM 0.87 mg/dL (0.57-1.11); EST GLOMERULAR FILTRATION RATE > 60 ML/MIN (60-); GLUCOSE 149 mg/dL (74-118); MAGNESIUM 1.8 MG/DL (1.3-2.1); POTASSIUM 3.7 mmol/L (3.5-5.1); SODIUM 137 mmol/L (136-145)
[2017-05-05] MEDS ORDERED: POTASSIUM CHLORIDE 20 MEQ TAB CR PO ONE (11:00)
[2017-05-05] MEDS ORDERED: SODIUM BICARBONATE 8.4% 50 ML VIAL IV ONE (11:00)
[2017-05-05] MEDS ORDERED: SODIUM BICARBONATE 8.4% INJ 50 ML SYR IV NR (11:00)
[2017-05-05] MEDS: ACETAMINOPHEN 325 MG TAB PO PRN (11:20)
[2017-05-05 11:53] LABS: RBC MORPHOLOGY COMMENT NORMAL
[2017-05-05 11:54] LABS: PLATELET ESTIMATE ADEQUATE; PLATELET MORPHOLOGY COMMENT FEW LARGE
[2017-05-05] MEDS ORDERED: INSULIN LISPRO 100 UNIT/1 ML 3ML VIAL SQ STA (14:11)
[2017-05-05 14:47] LABS: FREE T4 (FREE THYROXINE) 0.96 ng/dL (0.9-1.8); THYROID STIMULATING HORMONE 3.098 uIU/mL (0.350-4.940)
--- NOTE | 2017-05-05 15:34 | Consultation ---
DATE OF CONSULTATION: May 05, 2017 ENDOCRINE CONSULTATION This is a patient of Dr. Jimenez. Thank you very much for referring this patient. This is a 51-year-old white female who is referred to me for evaluation of uncontrolled diabetes mellitus and diabetic ketoacidosis. Patient reportedly is a known diabetic for almost 20 years and takes insulin at home at average about 40 units at bedtime and 12 units of Humalog with each meal depending upon the blood sugars. The patient was visiting [facility]. She started getting dehydrated there, and she could not give the right dose of bolus insulin because her blood sugar meter was not working. She got dehydrated and reported to the emergency room at [facility]. At the time of admission, her blood sugars were in 126 to 150 range, but her anion gap was significantly elevated at 25, and the CO2 was 13. Patient also has history of tachycardia. She is on metoprolol at home. She does not take any other routine medications. PHYSICAL EXAMINATION GENERAL: The patient at the time of admission was alert, awake, a little bit apprehensive. She was slightly dehydrated. VITALS: Heart rate was 100. Blood pressure 130/80 mmHg. HEENT: Examination is essentially unremarkable. Thyroid is palpable. Clinically near euthyroid. CHEST: Bilateral vesicular breathing. No rales heard. CARDIAC: The 1st and 2nd heart sounds. There is no 3rd or 4th heart sound. Ejection systolic murmur, grade 2/6. CLINICAL IMPRESSION 1. Diabetes mellitus, type 1. 2. Diabetic ketoacidosis. 3. Dehydration. The plan at this time is the patient has been started on IV fluids and insulin drip. Will start her on subcutaneous insulin, monitor her blood sugars closely and adjust the insulin dose. Thanks for referring this patient. I will follow this patient with you. Job#: [id number] KARON
[2017-05-05] MEDS: INSULIN LISPRO 100 UNIT/1 ML 3ML VIAL SQ SCH ×2 (18:28→21:49)
[2017-05-05 19:36] LABS: ANION GAP 13.4 mmol/L (8-16); BLOOD UREA NITROGEN 7 mg/dL (7-26); BUN/CREATININE RATIO 8 (6-25); CALCIUM 7.9 mg/dL (8.4-10.2); CARBON DIOXIDE 18 mmol/L (22-29); CHLORIDE 110 mmol/L (98-107); CREATININE, SERUM 0.88 mg/dL (0.57-1.11); EST GLOMERULAR FILTRATION RATE > 60 ML/MIN (60-); GLUCOSE 156 mg/dL (74-118); MAGNESIUM 1.7 MG/DL (1.3-2.1); POTASSIUM 3.4 mmol/L (3.5-5.1); SODIUM 138 mmol/L (136-145)
[2017-05-05] MEDS: INSULIN DETEMIR 100 UNIT/ML PEN SQ SCH (21:49)
[2017-05-05 22:15] VITALS: BP 151/72
[2017-05-05 22:30] VITALS: BP 150/72
[2017-05-06 01:13] VITALS: BP 150/72
[2017-05-06] MEDS ORDERED: ASPIR 8181 MG PO (02:57)
[2017-05-06] MEDS ORDERED: LISINOPRIL10 MG PO (03:05)
[2017-05-06] MEDS ORDERED: ATORVASTATIN CA20 MG PO (03:07)
[2017-05-06 07:30] VITALS: BP 158/81
[2017-05-06] MEDS: INSULIN LISPRO 100 UNIT/1 ML 3ML VIAL SQ SCH ×2 (07:30→11:30)
[2017-05-06] MEDS: ACETAMINOPHEN 325 MG TAB PO PRN (08:30)
[2017-05-06] MEDS: INSULIN DETEMIR 100 UNIT/ML PEN SQ SCH (08:45)
[2017-05-06] MEDS: DEXTROSE 5%/0.45% SOD CHL 1,000 ML IV SCH (09:08)
[2017-05-06 11:30] LABS: ALANINE AMINOTRANSFERASE 14 IU/L (0-55); ALBUMIN 2.6 g/dL (3.5-5.0); ALBUMIN/GLOBULIN RATIO 0.9 (0.8-2.0); ALKALINE PHOSPHATASE 66 IU/L (40-150); ANION GAP 7.5 mmol/L (8-16); BLOOD UREA NITROGEN 7 mg/dL (7-26); BUN/CREATININE RATIO 9 (6-25); CARBON DIOXIDE 25 mmol/L (22-29); CHLORIDE 110 mmol/L (98-107); CREATININE, SERUM 0.74 mg/dL (0.57-1.11); EST GLOMERULAR FILTRATION RATE > 60 ML/MIN (60-); GLUCOSE 182 mg/dL (74-118); POTASSIUM 3.5 mmol/L (3.5-5.1); SODIUM 139 mmol/L (136-145)
[2017-05-06 11:40] LABS: CALCIUM 7.8 mg/dL (8.4-10.2)
[2017-05-06 13:10] VITALS: BP 136/76
--- NOTE | 2017-05-06 15:30 | Discharge Summary ---
FINAL DISCHARGE DIAGNOSES 1. Diabetic ketoacidosis. 2. Anion gap metabolic acidosis. 3. Nausea, vomiting. 4. Dehydration. 5. Acute kidney injury secondary to dehydration. CONSULTANTS: We had Endocrinology. VITAL SIGNS: Temperature was 98.5, pulse 87, respiratory rate is 20, blood pressure was 151/72, pulse ox 95% on room air. LAB FINDINGS: Show white count of 6, hemoglobin 12, hematocrit is 35, platelets of 164. Her chemistry: Sodium 139, potassium 3.5, chloride 110, bicarb is 25, anion gap of 7.5. Her BUN is 7. Her creatinine is 0.7. Glucose point of care was 163. Her hemoglobin A1c was 13.5. Lactic acid 7, which was normal. Calcium is 7.8, magnesium 1.7. LFTs were normal. Albumin was 2.6. TSH was 3. Urinalysis was 3+ blood, negative leukocyte esterase, 7-20 RBCs. Beta-hydroxybutyrate was greater than 2. ABG: pH of 7.25, pCO2 of 30, pO2 of 109, bicarb of 13. MICROBIOLOGY: Urine cultures were mixed jona, likely contaminant. IMAGING STUDIES: None. HOSPITAL COURSE: A 51-year-old female who came into the ED with complaints of nausea, vomiting and dehydration, found to have diabetic ketoacidosis. Patient reports she was on a vacation trip and her glucose monitor was not working. She presented here with anion gap metabolic acidosis, severe dehydration which required the patient to be on insulin DKA protocol, and Endocrinology was consulted. Patient's anion gap closed, and her anion gap on discharge was 7.5 with a bicarb of 25. Patient's nausea, vomiting all resolved. Her abdominal pain resolved as well. She is tolerating regular diet with no complaints. Patient is well hydrated on examination. Her glucose on discharge was 163. Her acute kidney injury resolved as well with IV fluids. Endocrinology monitored and managed this patient as well and cleared the patient for discharge home. Patient is to continue with the same regimen that she takes at home in relation to her insulin and is to follow up with her primary supply room clerk. Patient verbalized understanding. On the day of discharge, vital signs stable, labs reviewed and stable. Patient seen and evaluated and examined thoroughly on the day of discharge with no other complaints. Patient verbalized understanding and agreed with the plan of care, to follow up accordingly as an outpatient with her primary supply room clerk in the next 1 week. MEDICATIONS: See med reconciliation form. DISPOSITION: To home. CONDITION: Stable. DIET: Diabetic. FOLLOWUP: With her primary supply room clerk in 1 week, PCP in 1 week. In the event of any worsening symptoms, the patient advised to come back to the ED for further evaluation. Discharge summary took greater than 35 minutes. LORENZO JEAN MD Job#: [id number] EV
== END 2017-05-06 13:25 | disposition home or self-care (01) | DRG 638 ==
LOC: ER 12:33 → ERHOLD 20:11 → MED/SURG3 05-05 21:56
PROVIDERS: ADMIT Internal Medicine; ATTEND Internal Medicine
PROC: 02HV33Z Insertion of Infusion Device into Superior Vena Cava, Percutaneous Approach (ICD-10-PCS; principal; 2017-05-05)
DX: E10.10 Type 1 diabetes mellitus with ketoacidosis without coma (principal); N17.9 Acute kidney failure, unspecified; E86.0 Dehydration; Z79.4 Long term (current) use of insulin
CPT/HCPCS: 36415; 36569; 36600; 71045; 80048; 80053; 81001; 82010; 82550; 82553; 82805; 82948; 83036; 83605; 83735; 83880; 84439; 84443; 84484; 84702; 85025; 87086; J2270; J2405; J3480; J7030; J7050